=== PATIENT | female | born 1935 | race Caucasian/White ===

== ENCOUNTER → 2020-03-26 12:47 | Outpatient (BNVA) | payer MEDICARE, SELFPAY | PROVIDERS: PCP Internal Medicine; Visit Provider Urology | DX: N39.41 Urge incontinence (principal); R39.15 Urgency of urination | CPT/HCPCS: 64566 ==

== ENCOUNTER 2020-03-29 09:59 | Outpatient (REF) | payer MEDICARE, SELFPAY ==
[2020-03-29 11:59] LABS: Glucose Urine UA NEG (NEG); Leukocyte Esterase Urine 1+ (NEG); Urine Blood 3+ (NEG); Urine Ketones NEG (NEG); Urine Protein 2+ MG/DL (NEG-TRACE)
[2020-03-29 12:00] LABS: Color Urine RED
[2020-03-29 12:01] LABS: Appearance Urine CLOUDY
[2020-03-29 12:24] LABS: RBC Urine TNTC /HPF (0); Squamous Epithelial Cell Urine 1+ /LPF
== END 2020-03-29 10:00 | disposition home or self-care (01) ==
LOC: HO.LAB 09:59
PROVIDERS: PCP Internal Medicine; Visit Provider Internal Medicine
DX: R31.0 Gross hematuria (principal)
CPT/HCPCS: 81001; 81003; 87086

== ENCOUNTER 2020-04-06 13:41 | Emergency (ER) | payer MEDICARE, SELFPAY ==
[2020-04-06 13:47] VITALS: BP 163/77; PULSE 107; RESP 18; TEMP 36.7; O2SAT 98; BMI 32.1
[2020-04-06] MEDS: Lidocaine HCl 1 % MPF 5 ML VIAL SUBCUT (13:58)
--- NOTE | 2020-04-06 14:07 | XR_ITS ---
EXAMINATION: XR HAND, LEFT CLINICAL INFORMATION: Injury to distal aspect of the left ring finger COMPARISON: None TECHNIQUE: PA, lateral, and oblique views of the left hand. FINDINGS: There is a subtle linear lucency along the ulnar aspect of the tuft of the distal phalanx of the ring finger, only seen on the AP view, that may represent a nondisplaced fracture versus a nutrient foramen. There is soft tissue irregularity to the finger pad of the ring finger, that likely represents a laceration. No radiopaque foreign body is visualized. The remainder of the bones are intact. Joint spaces are preserved. There is diffuse osteopenia. IMPRESSION: Subtle linear lucency along the ulnar aspect of the tuft of the distal phalanx of the ring finger, only seen on the AP view, that may represent a nondisplaced fracture versus a nutrient foramen. Soft tissue laceration to the distal aspect of the ring finger. No radiopaque foreign body is visualized.
--- NOTE | 2020-04-06 14:11 | ED.WOUNDLAC ---
HPI - Wound/Laceration General Chief Complaint: Skin/Abscess/Foreign Body Stated Complaint: finger laceration Time Seen by Provider: 04/06/20 13:51 Source: patient Mode of arrival: ambulatory Limitations: no limitations History of Present Illness HPI narrative: 84-year-old female presenting to the ED with complaints of a laceration to her left hand ring finger at the distal aspect that occurred prior to arrival when the garage door closed shut quickly and cut her hand. She is not sure she is up-to-date on her tetanus vaccine. Denies any other injuries complaints or concerns at this time. Related Data Previous Rx's Medication Instructions Recorded cephalexin [Keflex] 500 mg PO Q6H 10 Days #40 cap 04/06/20 tramadol 50 mg PO Q8H PRN #14 tab NS 04/06/20 Allergies Allergy/AdvReac Type Severity Reaction Status Date / Time perfume Allergy Intermediate SNEEZES Verified 04/06/20 13:59 solifenacin [Vesicare] Allergy Unknown swollen Verified 07/03/19 00:00 lips Review of Systems Review of Systems: Constitutional : No Fever, No Chills, Cardiovascular : No Chest Pain, No SOB Respiratory : No Dyspnea Gastrointestinal : No abdominal pain Musculoskeletal : No Joint Swelling Skin : positive skin laceration, No Foreign bodies, No rash, No surrounding erythema Neuro : No Weakness, No Numbness/tingling Psych : No SI/HI/thoughts of self injury Yes all other systems are reviewed and are negative [facility] Past Medical History Medical History HTN (hypertension) Social History Social History Alcohol intake: never Smoked in Last 30 Days: No Use of substances other than those prescribed or required for medical reasons: No Advance Directives: No Advance Directives Information Provided: No Physical Exam Vital Signs: Vital Signs: Vital Signs Temp Pulse Resp BP Pulse Ox 04/06/20 13:47 98.0 F 107 H 18 163/77 H 98 Body Mass Index 32.1 vital signs have been reviewed as normal and appeared to be correct. Blood pressure normal. Heart rate normal. Respiration rate normal. Temperature normal. Oxygen saturation normal. Appearance: Alert. Oriented X3. No acute distress. Head: Normal external exam. Normocephalic. Atraumatic. No Bui signs noted. No raccoon eyes noted Eyes: PERRLA. EOMI. Conjunctiva and sclera normal. Eyelids normal. ENT: EAC normal. TM's Normal. Pharynx normal. Uvula midline. Moist mucous membranes. No trismus noted. No drooling noted. No muffled voice noted. Neck: Normal inspection. Neck supple. FROM. No adenopathy. Thyroid Normal. No meningeal signs. No neck mass noted. CVS: Normal heart rate and rhythm. Heart sound normal. No murmurs noted. Pulses normal throughout. Respiratory: No respiratory distress. Painless inspiration. Breath sounds normal. No wheezes/rales/rhonchi noted. Chest nontender. No accessory muscle usage noted or decreased air movement noted. Abdomen: Soft and nontender. Bowel sounds normal in all 4 quadrants. No distention noted. No organomegaly noted. No visible injury noted. Back: No CVA tenderness. Full range of motion noted. Skin: Skin warm and dry. Normal skin color. Normal skin turgor. No rashes/lesions noted. Laceration to left hand ring finger distal aspect on the palmar aspect there is noted to be a curved 2 cm subcuatneous laceration. Bleeding controlled no FB's noted. Nail bed and nail not involved. Extremities: TTP of left ring finger distal aspect. No lower extremity edema. Extremities exhibit normal range of motion. Extremities nontender. Neuro: Oriented X 3. No motor deficit. No sensory deficit. Reflexes normal. Course Course Course Narrative: patient is now status post laceration repair with 5 sutures placed. Patient tolerated procedure well. No complications. Tetanus was updated at this time. X-ray obtained and revealed a possible linear fracture on the ulnar aspect of the distal phalanx of the ring finger. Will DC home with antibiotics and referral to Orthopedics and instructions to return in 10 days for suture removal and to return if any new or worsening symptoms. Patient understands agrees with this plan. Procedures Laceration Laceration 1: Site: hand (ring finger distal aspect ) Side (If applicable): left Size (cm): 2 Description: linear and clean Depth: simple, single layer Local Anesthetic: lidocaine 1% Amount of anesthesia used (mL): 3 Pre-repair: wound explored, irrigated extensively and deep structures intact Skin layer closed with: nylon Size (cm): 4-0 Number of sutures: 5 Technique: simple, interrupted MDM - Wound/Laceration Medical Records Attestation: I reviewed the patient's medical records. Imaging Data xray of left ring finger: Attestation: I personally reviewed and interpreted this imaging study as follows: Radiologist's impression: IMPRESSION: Subtle linear lucency along the ulnar aspect of the tuft of the distal phalanx of the ring finger, only seen on the AP view, that may represent a nondisplaced fracture versus a nutrient foramen. Soft tissue laceration to the distal aspect of the ring finger. No radiopaque foreign body is visualized. Discharge Plan Discharge Clinical Impression: Laceration Finger fracture, left Qualifiers: Encounter type: initial encounter Finger: ring finger Fracture type: closed Phalanx: distal Fracture alignment: nondisplaced Qualified Code(s): S62.665A - Nondisplaced fracture of distal phalanx of left ring finger, initial encounter for closed fracture Patient Disposition: Home, Self-Care Instructions: Laceration (ED) Prescriptions: New tramadol 50 mg tablet 50 mg PO Q8H PRN (Reason: pain) Qty: 14 RF: 0 cephalexin [Keflex] 500 mg capsule 500 mg PO Q6H 10 Days Qty: 40 RF: 0 Referrals: Lenin Conner MD [Physician] - 04/15/20 (call to follow up within 1-2 weeks ) Ariadna Villarreal PA [Emergency Midlevel Provider] - 04/16/20 ( FOR SUTURE REMOVAL.) Print Language: Dutch
--- NOTE | 2020-04-06 14:50 | PC.NURSE ---
PCT DRESSING PT WOUND WITH SPLINT PER PA.
== END 2020-04-06 15:03 | disposition home or self-care (01) ==
PROVIDERS: Emergency Provider Emergency Medicine; PCP Internal Medicine
DX: S61.214A Laceration without foreign body of right ring finger without damage to nail, initial encounter (principal); S62.664A Nondisplaced fracture of distal phalanx of right ring finger, initial encounter for closed fracture; W23.1XXA Caught, crushed, jammed, or pinched between stationary objects, initial encounter; Y93.89 Activity, other specified; Y92.015 Private garage of single-family (private) house as the place of occurrence of the external cause; Y99.9 Unspecified external cause status
CPT/HCPCS: 12001; 73130; 90471; 90715; 99284

== ENCOUNTER 2020-04-16 09:12 | Emergency (ER) | payer MEDICARE, SELFPAY ==
[2020-04-16 09:41] VITALS: BP 140/62; PULSE 78; RESP 17; TEMP 36.9; O2SAT 99; BMI 32.1
--- NOTE | 2020-04-16 10:09 | ED.WOUNDLAC ---
HPI - Wound/Laceration General Chief Complaint: Wound/Laceration Stated Complaint: suture removal Time Seen by Provider: 04/16/20 10:02 Source: patient Mode of arrival: wheelchair History of Present Illness HPI narrative: 84-year-old female presenting to ED for suture removal from laceration to left ring finger s/p 5 sutures placed on 04/06 after back door slamming finger. admits to taking previously prescribed antibiotic. Denies follow-up with Orthopedics yet, or desire to. denies complaints at present, denies pain, drainage, fever, chills Related Data Previous Rx's Medication Instructions Recorded cephalexin [Keflex] 500 mg PO Q6H 10 Days #40 cap 04/06/20 tramadol 50 mg PO Q8H PRN #14 tab NS 04/06/20 Allergies Allergy/AdvReac Type Severity Reaction Status Date / Time perfume Allergy Intermediate SNEEZES Verified 04/06/20 13:59 solifenacin [Vesicare] Allergy Unknown swollen Verified 07/03/19 00:00 lips Review of Systems Review of Systems: Constitutional: No Weight loss, No Fever, No Chills Musculoskeletal: No joint pain, No Myalgias, No Joint Swelling Skin: No Skin Lesions, No rash Neuro: No Weakness, No Numbness, No Paresthesias Yes all other systems are reviewed and are negative PMFSH Past Medical History Source: nursing notes reviewed Medical History HTN (hypertension) Social History Social History Alcohol intake: never Advance Directives: No Advance Directives Information Provided: No Physical Exam Vital Signs: Vital Signs: Vital Signs Temp Pulse Resp BP Pulse Ox 04/16/20 09:41 98.4 F 78 17 140/62 H 99 Body Mass Index 32.1 Const: General: cooperative and healthy appearing Orientation/consciousness: patient oriented x3 Limitations: no limitations HENMT: Head: Yes normal to inspection Ears: hearing grossly normal bilaterally General nose exam: Normal external nose present Face and sinus: Yes normal facial exam Eyes: General: appearance normal, both eyes and all related structures EOM: EOMs intact bilaterally Neck: Neck: Yes normal visual inspection Resp: Effort & Inspection: normal respiratory effort Cardio: Peripheral pulses: radial pulses present Skin: Other: 5 sutures intact to left distal ring finger. No surrounding erythema. No fluctuance /induration. FROM/NV intact Neuro: General: patient oriented x3 Gait exam (Neuro): Normal gait present Extrem: General: Yes normal to inspection Discharge Plan Discharge Clinical Impression: Encounter for removal of sutures Patient Disposition: Home, Self-Care Instructions: Stitches Removal (ED) Additional Instructions: your stitches were taken out today in the ED Apply bacitracin or Neosporin at home You may also apply anti scar cream likely derma Keep area clean, left area get to it for healing Avoid excessive water / movement/ rubbing You should still follow-up with the orthopedic surgeon Prescriptions: No Action tramadol 50 mg tablet 50 mg PO Q8H PRN (Reason: pain) Qty: 14 RF: 0 cephalexin [Keflex] 500 mg capsule 500 mg PO Q6H 10 Days Qty: 40 RF: 0
== END 2020-04-16 10:20 | disposition home or self-care (01) ==
PROVIDERS: Emergency Provider Emergency Medicine; PCP Internal Medicine
DX: Z48.02 Encounter for removal of sutures (principal); M79.642 Pain in left hand
CPT/HCPCS: 99283

== ENCOUNTER → 2020-07-03 10:06 | Outpatient (BNVA) | payer MEDICARE, SELFPAY | PROVIDERS: PCP Internal Medicine; Visit Provider Internal Medicine Cardiovascular Disease | DX: I48.91 Unspecified atrial fibrillation (principal) | CPT/HCPCS: 93005; 99212 ==

== ENCOUNTER 2020-10-27 11:21 | Inpatient (IN) | payer MEDICARE, SELFPAY ==
[2020-10-27] VITALS (9 sets, daily range): BP systolic 150–181; BP diastolic 82–112; PULSE 60–133; RESP 18–19; TEMP 36.4–37.4; O2SAT 93–96; BMI 31.2
--- NOTE | ~2020-10-27 | XR_ITS ---
EXAMINATION: XR CHEST CLINICAL INFORMATION: Confirm NG tube placement. COMPARISON: None TECHNIQUE: Frontal view of the chest was obtained. FINDINGS: There is a new nasogastric tube with its tip in the stomach. There is moderate elevation of right hemidiaphragm. The lungs are otherwise well-expanded and clear. The heart size and pulmonary vascularity is normal. There are surgical nicci in the left axilla. XR/XR chest 1V IMPRESSION: Tip of nasogastric tube in the stomach. Elevated right hemidiaphragm. The lungs are clear.
--- NOTE | ~2020-10-27 | CT_ITS ---
EXAMINATION: CT ABDOMEN AND PELVIS WITH CONTRAST CLINICAL INFORMATION: Vomiting, pain, constipation. Rule out small bowel obstruction. COMPARISON: CT abdomen 01/04/2019. TECHNIQUE: Multidetector volumetric images were obtained from the superior aspect of the liver through the pubic symphysis following administration 85 mL of Omnipaque 350 intravenous contrast. Sagittal and coronal reformatted images were obtained on the technologist's workstation. Oral contrast: No. This CT examination was performed using dose optimization techniques as appropriate, variously including the following: *Automated exposure control *Adjustment of mA and/or kV according to patient size (this includes techniques or standardized protocols for targeted exams where dose is matched to indication/reason for exam; i.e. extremities or head). *Use of iterative reconstruction technique. DLP: 498 mGy-cm FINDINGS: LUNG BASES: Mild right basilar atelectasis. Small right pleural effusion. Normal heart size. Coronary artery calcification. No pericardial effusion. LIVER, GALLBLADDER, AND BILIARY TREE: No focal liver lesion seen. Redemonstrated is prominent intrahepatic and extrahepatic biliary duct dilatation. CBD measures approximately 1.7 cm, tapering distally. No definite filling defects identified within the CBD. This appears similar as compared to previous. Gallbladder is absent. PANCREAS: Prior CT scan demonstrated multiple cystic lesions in the pancreas. These lesions are difficult to visualize and correctly compare with the pancreatic mass protocol CT of 01/04/2019. There is a lesion in the uncinate process of the pancreas, suboptimally visualized measuring approximately 1.4 cm. Image 6:259. Lesion in the tail of the pancreas measuring 1.5 cm, previously measuring 1.4 cm, image 6:224. The additional lesion described on the prior CT scan are not well visualized on today's study. Pancreatic duct does not appear dilated. SPLEEN: Unremarkable. ADRENAL GLANDS: Unremarkable. KIDNEYS AND URETERS: 5.4 cm right renal cyst. Smaller hypodense lesions in bilateral kidneys, too small to characterize. No hydronephrosis. BLADDER: Unremarkable. GASTROINTESTINAL TRACT: There are dilated small bowel loops containing air and fluid present, measuring up to proximately 3.4 cm. The findings are compatible with small bowel obstruction. The area of transition appears to be in the lower midabdomen, image 4:33. The large colon is nondistended. Scattered colonic mid diverticuli. ABDOMINAL WALL: No significant abdominal wall hernia seen. LYMPH NODES: Prominent periportal and peripancreatic lymph nodes, appearing slightly less prominent as compared to previous. VASCULAR: No aneurysmal aortic dilatation seen. Atherosclerotic vascular calcification. PELVIC VISCERA: Anteverted uterus which was bulky. Multiple ill-defined low-attenuation foci within the uterus, indeterminate by CT. No adnexal masses identified. OSSEOUS STRUCTURES: Multilevel degenerative changes in the spine. CT/CT abdomen pelvis w con IMPRESSION: 1. Abnormal findings with dilated small bowel loops indicate a small bowel obstruction. The transition point appears to be in the mid lower abdomen. 2. Prominent intrahepatic and extrahepatic biliary dilatation, which appears similar as compared to previous. There are multiple cystic lesions present in the pancreas, suboptimally visualized. These are better visualized on the prior CT pancreatic mass protocol of 01/04/2019. This includes cystic lesions in the pancreatic head, tail, incompletely evaluated. Side branch intraductal papillary mucinous neoplasm remains in the differential. Recommend further evaluation with MRI pancreas protocol, or CT abdomen pancreatic protocol for further evaluation. 3. Right renal 5.4 cm cyst. 4. Bulky anteverted uterus containing multiple low-attenuation foci, suboptimally evaluated. Recommend further evaluation with follow-up pelvic ultrasound.
--- NOTE | ~2020-10-27 | XR_ITS ---
EXAMINATION: XR ABDOMEN KUB CLINICAL INDICATION: Resolved small bowel obstruction. Evaluate for ileus. COMPARISON: Previous CT of the abdomen and pelvis 10/27/2020 TECHNIQUE: AP view of the abdomen. FINDINGS: There is interval decrease in small bowel dilatation compared to 10/27/2020 exam. There is no evidence of free air. No calcifications are seen. There are degenerative changes of the lower lumbar spine. XR/XR KUB IMPRESSION: Interval decrease in small bowel dilatation compared to 10/27/2020 CT scan.
--- NOTE | 2020-10-27 12:12 | ECG_ITS ---
Test Reason : UPPER ABD PAIN Blood Pressure : / mmHG Vent. Rate : 102 BPM Atrial Rate : 441 BPM P-R Int : 000 ms QRS Dur : 074 ms QT Int : 356 ms P-R-T Axes : 000 -15 000 degrees QTc Int : 463 ms Atrial fibrillation with rapid ventricular response Abnormal ECG When compared with ECG of 15-NOV-2012 07:10, Atrial fibrillation has replaced Sinus rhythm Referred By: Hellen Rizo Electronically Signed By:DANE SUMNER
--- NOTE | 2020-10-27 12:13 | ED.ABDPAIN ---
HPI - Abdominal Pain General Chief Complaint: Abdominal Pain Stated Complaint: Abd Pain x3 days Time Seen by Provider: 10/27/20 12:07 Source: patient and EMS Mode of arrival: EMS Limitations: no limitations History of Present Illness HPI narrative: 84-year-old female with a past medical history of AFib on Eliquis, hypertension here with complaints of generalized abdominal pain for 3 days. The patient tells me that she has had associated vomiting with this. She has improvement in pain after she vomits. She has also had some constipation and her last bowel movement was 3 days ago. No urinary symptoms, fevers or chills, diarrhea. Decreased p.o. intake. Patient has no appetite. MD elicited complaint: abdominal pain Related Data Home Medications Medication Instructions Recorded Confirmed apixaban [Eliquis] 2.5 mg PO DAILY 10/27/20 10/27/20 diltiazem HCl 120 mg PO DAILY 10/27/20 10/27/20 irbesartan 1 tab PO DAILY 10/27/20 10/27/20 tramadol 1 tab PO BEDTIME PRN 10/27/20 10/27/20 Allergies Allergy/AdvReac Type Severity Reaction Status Date / Time perfume Allergy Intermediate SNEEZES Verified 04/06/20 13:59 solifenacin [Vesicare] Allergy Unknown swollen Verified 07/03/19 00:00 lips Review of Systems Review of Systems Yes all other systems are reviewed and are negative Constitutional: Reports no additional constitutional complaints, Denies body ache(s), Denies chills, Denies fever(s), Denies headache(s), Reports poor appetite and Denies weakness Eyes: Reports no additional eye complaints and Denies change in vision Reports system reviewed and no additional complaints, except as documented, Denies dizziness, Denies headache(s), Denies nasal congestion, Denies nasal discharge and Denies neck pain Cardiovascular: Reports no additional cardiovascular complaints, Denies chest pain, Denies leg edema and Denies dyspnea Respiratory: Reports no additional respiratory complaints, Denies cough and Denies dyspnea Gastrointestinal: Reports no additional gastrointestinal complaints, Reports abdominal pain, Reports constipation, Denies diarrhea, Reports nausea and Reports vomiting Genitourinary: Reports no additional female genitourinary complaints and Denies urinary incontinence Musculoskeletal: Reports no additional musculoskeletal complaints, Denies back pain, Denies arthralgias, Denies joint swelling, Denies neck pain, Denies numbness and Denies tingling Skin/Breast: Reports system reviewed and no additional complaints, except as docu and Denies rash Reports system reviewed and no additional complaints, except as documented, Denies Abnormal speech present, Denies dizziness, Denies headache(s), Denies numbness, Denies tingling and Denies weakness Physical Exam Vital Signs: Vital Signs: Last Vital Signs Temp 97.6 F 10/27/20 19:20 Pulse 106 H 10/27/20 19:20 Resp 18 10/27/20 19:20 BP 181/103 H 10/27/20 19:20 Pulse Ox 96 10/27/20 19:20 Body Mass Index 31.2 Const: General: cooperative, healthy appearing, comfortable and no acute distress Orientation/consciousness: patient oriented x3 Limitations: no limitations HENMT: Head: Yes normal to inspection Ears: hearing grossly normal bilaterally General nose exam: Normal external nose present Face and sinus: Yes normal facial exam Mouth: Normal oral and palatal mucosa present Throat: Yes posterior oropharynx normal Eyes: General: appearance normal, both eyes and all related structures Pupils: Equal, round and reactive pupils present Neck: Neck: Yes normal visual inspection Chest: Chest palpation & inspection: normal inspection of the chest Resp: Effort & Inspection: normal respiratory effort Auscultation: clear to auscultation bilaterally Cardio: Rate: regular rate Rhythm: regular rhythm Peripheral pulses: Peripheral pulses 2+ throughout GI: Inspection: Yes normal to inspection Palpation (GI): Soft to palpation and Tenderness to palpation present (GI) (Mild diffuse tenderness although there is some more focal tenderness LUQ) Auscultation: normal bowel sounds : Other: No bleeding noted from vaginal External Female Exam: normal external appearance Back/Spine/Pelvis: Thoracic/Lumbar Spine: thoracic and lumbar spine normal to inspection Skin: General skin exam: no rashes or lesions noted Neuro: General: patient oriented x3, no focal motor deficits and normal sensation to monofilament Cranial nerves: Yes Equal, round and reactive pupils present Cognition (Neuro): normal cognition Speech: No Abnormal speech present Gait exam (Neuro): Normal gait present Motor exam (neuro): 5/5 motor strength present throughout Extrem: General: Yes normal to inspection, Yes no pedal edema and Yes no calf tenderness Course Course Course Narrative: 84-year-old female with a past medical history of AFib and hypertension here with complaints of diffuse abdominal pain with associated vomiting and constipation. On exam has diffuse tenderness but there is some more focal tenderness over the left-sided abdomen. Will need labs, UA, EKG d/t age, Ct A/P. 1305-labs show leukocytosis 13.6, hypokalemia 3.1. Will attempt p.o. potassium. Give IV if unable to tolerate. Normal saline bolus. 1705- CT A/P IMPRESSION: 1. Abnormal findings with dilated small bowel loops indicate a small bowel obstruction. The transition point appears to be in the mid lower abdomen. 2. Prominent intrahepatic and extrahepatic biliary dilatation, which appears similar as compared to previous. There are multiple cystic lesions present in the pancreas, suboptimally visualized. These are better visualized on the prior CT pancreatic mass protocol of 01/04/2019. This includes cystic lesions in the pancreatic head, tail, incompletely evaluated. Side branch intraductal papillary mucinous neoplasm remains in the differential. Recommend further evaluation with MRI pancreas protocol, or CT abdomen pancreatic protocol for further evaluation. 3. Right renal 5.4 cm cyst. 4. Bulky anteverted uterus containing multiple low-attenuation foci, suboptimally evaluated. Recommend further evaluation with follow-up pelvic ultrasound. Discussed patient with Dr. magallon is from surgery. Recommended admission with NG tube and bowel rest. Patient had episode of AFib with RVR here with a rate of 150. She did require a dose of 10 mg of IV Cardizem and her rate is now 108 in AFib. Requested medicine admit patient. Spoke to Dr. Dangelo who will admit the patient. Of note, the patient and the in the room seemed quite confused on which medications she takes and when she takes them. They were last filled in June however the patient does insist that she does take them every day. May need case management and social work involvement during admission. Patient was also noted to have some pink urine with small clots. She tells me she has a history of blood in her urine and she is followed by urologist and this is been a chronic problem for her. The UA does not appear infected and she has no symptoms of a UTI so we will not treat this. 1845-Patient HR now afib rate 130-140's. Will place on cardizem gtt. Nursing aware. MDM - Abdominal Pain MDM Narrative Medical decision making narrative: Pancreatitis, small-bowel obstruction, constipation, gastritis, GERD Medical Records Attestation: I reviewed the patient's medical records. Lab Data Attestation: I reviewed the patient's lab results. Result diagrams: 10/27/20 12:34 10/27/20 12:34 Labs: Lab Results 10/27/20 10/27/20 10/27/20 Range/Units 12:34 12:34 12:34 WBC 13.6 H (4.8-10.8) X10*3/uL RBC 4.57 (4.20-5.50) X10*6/uL Hgb 14.1 (12.0-16.0) g/dl Hct 41.6 (37-47) % MCV 91.0 (80-98) fL MCH 30.9 (27.0-33.0) pg MCHC 33.9 (31.0-35.0) g/dl RDW 14.8 (11.0-16.0) % Plt Count 248 (160-400) X10*3/uL MPV 10.3 (9.4-12.3) fL Immature Gran % (Auto) 0.4 (0.0-0.4) % Neut % (Auto) 84.7 H (45-73) % Lymph % (Auto) 6.7 L (20-40) % [place] % (Auto) 8.1 (2-11) % Eos % (Auto) 0.0 (0-4) % Baso % (Auto) 0.1 (0-2) % Lymph # (Auto) 0.9 L (1.2-4.9) X10*3/uL [place] # (Auto) 1.1 (0.1-1.2) X10*3/uL Eos # (Auto) 0.0 (0.0-0.4) X10*3/uL Baso # (Auto) 0.0 (0.0-0.2) X10*3/uL Abs Immat Gran (auto) 0.05 H (0.00-0.03) X10*3/uL Absolute Neuts (auto) 11.5 H (2.0-8.3) X10*3/uL Absolute Nucleated RBC 0.000 (0.0-0.012) X10*3/uL Nucleated RBC % (auto) 0.0 (0.0-0.2) /100WBC PT 11.9 (10.8-13.0) SEC INR 1.0 (0.9-1.1) Sodium 138 (135-145) mmol/L Potassium 3.1 L (3.3-5.1) mmol/L Chloride 98 (96-108) mmol/L Carbon Dioxide 25 (22-29) mmol/L Anion Gap 18 (12-20) BUN 19 H (9-16) mg/dL Creatinine 0.98 (0.5-1.4) mg/dL Estim Creat Clear Calc 38.8 Estimated GFR 54 Random Glucose 134 H (60-115) mg/dL Calcium 8.9 (8.4-10.2) mg/dL Magnesium 1.8 (1.6-2.6) mg/dL Total Bilirubin 0.9 (0.0-1.0) mg/dL Direct Bilirubin 0.3 (0.0-0.5) mg/dL AST 22 (5-31) U/L ALT 15 (0-31) U/L Alkaline Phosphatase 68 (39-117) U/L Total Protein 6.7 (6.5-8.0) g/dL Albumin 4.1 (3.5-5.0) g/dL Lipase 18 (8-78) U/L Urine Color Urine Appearance Urine pH (5.0-8.0) Ur Specific [place] (1.005-1.025) Urine Protein (NEG-TRACE) MG/DL Urine Glucose (UA) (NEG) MG/DL Urine Ketones (NEG) MG/DL Urine Blood (NEG) Urine Nitrite (NEG) Ur Leukocyte Esterase (NEG) Urine RBC (0) /HPF Urine WBC (0-4) /HPF Ur Squamous Epith Cells /LPF Urine Bacteria /LPF COVID-19 ([facility]) (Negative) COVID-19 Clin Com 10/27/20 10/27/20 Range/Units 16:50 17:15 WBC (4.8-10.8) X10*3/uL RBC (4.20-5.50) X10*6/uL Hgb (12.0-16.0) g/dl Hct (37-47) % MCV (80-98) fL MCH (27.0-33.0) pg MCHC (31.0-35.0) g/dl RDW (11.0-16.0) % Plt Count (160-400) X10*3/uL MPV (9.4-12.3) fL Immature Gran % (Auto) (0.0-0.4) % Neut % (Auto) (45-73) % Lymph % (Auto) (20-40) % [place] % (Auto) (2-11) % Eos % (Auto) (0-4) % Baso % (Auto) (0-2) % Lymph # (Auto) (1.2-4.9) X10*3/uL [place] # (Auto) (0.1-1.2) X10*3/uL Eos # (Auto) (0.0-0.4) X10*3/uL Baso # (Auto) (0.0-0.2) X10*3/uL Abs Immat Gran (auto) (0.00-0.03) X10*3/uL Absolute Neuts (auto) (2.0-8.3) X10*3/uL Absolute Nucleated RBC (0.0-0.012) X10*3/uL Nucleated RBC % (auto) (0.0-0.2) /100WBC PT (10.8-13.0) SEC INR (0.9-1.1) Sodium (135-145) mmol/L Potassium (3.3-5.1) mmol/L Chloride (96-108) mmol/L Carbon Dioxide (22-29) mmol/L Anion Gap (12-20) BUN (9-16) mg/dL Creatinine (0.5-1.4) mg/dL Estim Creat Clear Calc Estimated GFR Random Glucose (60-115) mg/dL Calcium (8.4-10.2) mg/dL Magnesium (1.6-2.6) mg/dL Total Bilirubin (0.0-1.0) mg/dL Direct Bilirubin (0.0-0.5) mg/dL AST (5-31) U/L ALT (0-31) U/L Alkaline Phosphatase (39-117) U/L Total Protein (6.5-8.0) g/dL Albumin (3.5-5.0) g/dL Lipase (8-78) U/L Urine Color PINK Urine Appearance HAZY Urine pH 6.5 (5.0-8.0) Ur Specific [place] 1.010 (1.005-1.025) Urine Protein 1+ H (NEG-TRACE) MG/DL Urine Glucose (UA) NEG (NEG) MG/DL Urine Ketones 5 (NEG) MG/DL Urine Blood 3+ H (NEG) Urine Nitrite NEG (NEG) Ur Leukocyte Esterase NEG (NEG) Urine RBC 76-150 H (0) /HPF Urine WBC 0 (0-4) /HPF Ur Squamous Epith Cells 2+ /LPF Urine Bacteria 4+ /LPF COVID-19 ([facility]) Negative (Negative) COVID-19 Clin Com See Note Imaging Data CT scan - abdomen: Attestation: I personally reviewed and interpreted this imaging study as follows: Radiologist's impression: IMPRESSION: 1. Abnormal findings with dilated small bowel loops indicate a small bowel obstruction. The transition point appears to be in the mid lower abdomen. 2. Prominent intrahepatic and extrahepatic biliary dilatation, which appears similar as compared to previous. There are multiple cystic lesions present in the pancreas, suboptimally visualized. These are better visualized on the prior CT pancreatic mass protocol of 01/04/2019. This includes cystic lesions in the pancreatic head, tail, incompletely evaluated. Side branch intraductal papillary mucinous neoplasm remains in the differential. Recommend further evaluation with MRI pancreas protocol, or CT abdomen pancreatic protocol for further evaluation. 3. Right renal 5.4 cm cyst. 4. Bulky anteverted uterus containing multiple low-attenuation foci, suboptimally evaluated. Recommend further evaluation with follow-up pelvic ultrasound. Chest x-ray: Attestation: I personally reviewed and interpreted this imaging study as follows: Radiologist's impression: EXAMINATION: XR CHEST CLINICAL INFORMATION: Confirm NG tube placement. COMPARISON: None TECHNIQUE: Frontal view of the chest was obtained. FINDINGS: There is a new nasogastric tube with its tip in the stomach. There is moderate elevation of right hemidiaphragm. The lungs are otherwise well-expanded and clear. The heart size and pulmonary vascularity is normal. There are surgical nicci in the left axilla. XR/XR chest 1V IMPRESSION: Tip of nasogastric tube in the stomach. Elevated right hemidiaphragm. The lungs are clear. ECG Data Attestation: I personally reviewed and interpreted this ECG as follows: ECG interpretation date: 10/27/20 ECG interpretation time: 12:24 Interpretation: AFib with a rate of 102, normal QRS, normal QTC Discharge Plan Discharge Clinical Impression: Small bowel obstruction, Afib Patient Disposition: Admitted As Inpatient [facility] Past Medical History Attestation statement: The following information was validated with the patient. Source: old records reviewed and nursing notes reviewed Medical History (Updated 10/27/20 @ 18:11 by Hellen Rizo NP) HTN (hypertension) Surgical History (Updated 10/27/20 @ 12:39 by Hellen Rizo NP) History of appendectomy History of carpal tunnel surgery History of cholecystectomy Family History Family History Father No problems noted. Mother No problems noted. Social History Social History Alcohol intake: never Smoking Status: Former smoker Smoked in Last 30 Days: No Use of substances other than those prescribed or required for medical reasons: No Advance Directives: No Advance Directives Information Provided: No
--- NOTE | 2020-10-27 12:33 | PC.NURSE ---
EKG obtained and labs bring drawn by PCT at this time. Pt is resting quietly with family member at bedside.
[2020-10-27 12:38] LABS: MANUAL DIFF FLAG NO
[2020-10-27 12:39] LABS: Basophils Percent Auto 0.1 % (0-2); Hematocrit 41.6 % (37-47); Hemoglobin 14.1 g/dl (12.0-16.0); Imm Gran Abs Auto 0.05 X10*3/uL (0.00-0.03); Imm Gran Pct Auto 0.4 % (0.0-0.4); Lymphocytes Absolute Auto 0.9 X10*3/uL (1.2-4.9); Lymphocytes Percent Auto 6.7 % (20-40); Mean Corpuscular HGB Conc 33.9 g/dl (31.0-35.0); Mean Corpuscular Hemoglobin 30.9 pg (27.0-33.0); Mean Platelet Volume 10.3 fL (9.4-12.3); Monocytes Absolute Auto 1.1 X10*3/uL (0.1-1.2); Monocytes Percent Auto 8.1 % (2-11); Neutrophils Absolute Auto 11.5 X10*3/uL (2.0-8.3); Neutrophils Percent Auto 84.7 % (45-73); Platelet Count 248 X10*3/uL (160-400); Red Blood Count 4.57 X10*6/uL (4.20-5.50); Red Cell Distribution Width 14.8 % (11.0-16.0); White Blood Count 13.6 X10*3/uL (4.8-10.8)
[2020-10-27 12:49] LABS: Prothrombin Time 11.9 SEC (10.8-13.0)
[2020-10-27 13:03] LABS: Alanine Aminotransferase 15 U/L (0-31); Albumin Level 4.1 g/dL (3.5-5.0); Alkaline Phosphatase 68 U/L (39-117); Anion Gap 18 (12-20); Aspartate Amino Transferase 22 U/L (5-31); Bilirubin Direct 0.3 mg/dL (0.0-0.5); Bilirubin Total 0.9 mg/dL (0.0-1.0); Blood Urea Nitrogen 19 mg/dL (9-16); Calcium 8.9 mg/dL (8.4-10.2); Carbon Dioxide 25 mmol/L (22-29); Chloride 98 mmol/L (96-108); Creatinine Clr Calc Pharmacy 38.8; Estimated Glomerular Filt Rate 54; Glucose Random 134 mg/dL (60-115); Lipase 18 U/L (8-78); Magnesium 1.8 mg/dL (1.6-2.6); Potassium 3.1 mmol/L (3.3-5.1); Sodium 138 mmol/L (135-145); Total Protein 6.7 g/dL (6.5-8.0)
[2020-10-27] MEDS: Potassium Chloride ER 20 MEQ TAB.ER.PRT 40 MEQ PO (14:34)
[2020-10-27] MEDS: 0.9 % Sodium Chloride 1,000 ML 999 ML IV (14:35)
--- NOTE | 2020-10-27 15:30 | PC.NURSE ---
pt to cat scan now.
[2020-10-27] MEDS: iohexoL 350 MG/ML 100 ML INFUS..BTL IV (15:59)
--- NOTE | 2020-10-27 16:55 | PC.NURSE ---
UA collected. jeanine blood noted on pantliner and in urine. Pt unsure of how long this has been going on. Pt is poor historian.
[2020-10-27] MEDS: dilTIAZem HCL 50 MG/10 ML VIAL 10 MG IVPUSH (17:13)
[2020-10-27 17:15] LABS: Glucose Urine UA NEG (NEG); Leukocyte Esterase Urine NEG (NEG); Nitrite Urine NEG (NEG); PH 6.5 (5.0-8.0); Urine Blood 3+ (NEG); Urine Ketones 5 MG/DL (NEG); Urine Protein 1+ MG/DL (NEG-TRACE)
[2020-10-27 17:17] LABS: Appearance Urine HAZY; Color Urine PINK
[2020-10-27 17:40] LABS: COVID-19 Test Negative (Negative); IDNOW Serial# 9DD0AD1C
--- NOTE | 2020-10-27 17:40 | PC.NURSE ---
pt and at bedside are poor historians. This abstract writer placed multiple calls to various [facility] pharmacies, and [facility] to obtain med rec. Unsucessful. Last meds were filled in Jun 2020- for a 30 day supply. provider aware. montioring at this time.
[2020-10-27 17:49] LABS: Bacteria Urine 4+ /LPF; Squamous Epithelial Cell Urine 2+ /LPF; WBC Urine 0 /HPF (0-4)
--- NOTE | 2020-10-27 17:58 | PC.NURSE ---
per hospitalist team, this food writer is to fill out based on last claimed. Confirmed with MLP
[2020-10-27] MEDS: dilTIAZem HCL 125 MG in 0.9 % Sodium Chloride 100 ML 10 MG IVCONT (19:06)
--- NOTE | 2020-10-27 20:21 | P.HPHOSP_ITS ---
History of Present Illness Date of Service: 10/27/20 Chief Complaint: Abdominal pain This is an 84-year-old female with possible dementia, HTN, AFib on Eliquis who presents to the hospital with complaints of abdominal pain as well as vomiting. Patient is a very poor historian but answers questions somewhat appropriately. When asked about her last bowel movement she reported that it was 3 days ago, the abdominal pain is diffuse, nonradiating, 9/10, associated with vomiting but reports that improved. She reports that she had some blood in her urine. Denies any headache, change in vision, no chest pain, no palpitations, no diarrhea, constipated for 3 days with no bowel movements, has no dysuria frequency urgency, and no lower extremity edema. Vitals on arrival significant for temp of 98.9?, heart rate of 119, respiratory rate of 18, blood pressure of 152/85, satting 96% on room air Lab significant for WBC count of 13.6, hemoglobin of 14, potassium of 3.1, BUN of 19, creatinine of 0.98, UA that is positive for RBC and blood Patient will be admitted under our service for AFib with RVR as well as SBO with consult for surgery Review of Systems Review of Systems: Yes all other systems are reviewed and are negative [facility] Medical History (Updated 10/28/20 @ 06:10 by Leanna Howard MD) Afib HTN (hypertension) Family History Father No problems noted. Mother No problems noted. Surgical History History of appendectomy History of carpal tunnel surgery History of cholecystectomy Social History Household Members: Spouse Housing: House Do you presently have visiting nurse or other home services: No Alcohol intake: never Smoking Status: Former smoker Smoked in Last 30 Days: No Use of substances other than those prescribed or required for medical reasons: No Currently Displaying Signs/Symptoms of Drug Intoxication Withdrawal: No Have you been hit, kicked, punched, or otherwise hurt by someone within the past year? If so, by whom?: No Do you feel safe in your current relationship?: No Is there a partner from a previous relationship who is making you feel unsafe now?: No Are you made to feel afraid or neglected: No Advance Directives: No Advance Directives Information Provided: No Do you have thoughts of harming others: None Do you have a plan to hurt others: No Plan Recently lost weight without trying: No Patient : No : No Poor oral hygiene: No Meds Allergies Allergy/AdvReac Type Severity Reaction Status Date / Time perfume Allergy Intermediate SNEEZES Verified 04/06/20 13:59 solifenacin [Vesicare] Allergy Unknown swollen Verified 07/03/19 00:00 lips Active Medications: Current Medications Generic Name Dose Route Start Last Admin Trade Name Freq PRN Reason Stop Dose Admin Acetaminophen 650 mg 10/27/20 19:55 Acetaminophen 325 Mg Tablet NG-TUBE Q6H PRN Pain, Mild (Pain Scale 1-3) Diltiazem HCl 120 mg 10/28/20 09:00 Diltiazem Hcl Cd 120 Mg Cap.Er.Deg PO DAILY [facility] Protocol Diltiazem HCl 125 mg/ Sodium 125 mls @ 0 mls/hr 10/27/20 18:45 10/27/20 19:06 Chloride IVCONT 10 mg/hr .Q0M MOODY 10 mls/hr Administration Protocol Per Protocol Morphine Sulfate 4 mg 10/27/20 19:55 Morphine Sulfate 4 Mg/Ml Cartridge IVPUSH Q4H PRN Pain, Severe (Pain Scale 7-10) Ondansetron HCl 4 mg 10/27/20 19:55 Ondansetron Hcl 4 Mg/2 Ml Vial IVPUSH Q8H PRN Nausea and Vomiting Sodium Chloride 3 ml 10/28/20 00:00 0.9 % Sodium Chloride Flush 3 Ml Syringe IVFLUSH QSHIFT [facility] Tramadol HCl 50 mg 10/27/20 19:55 Tramadol Hcl 50 Mg Tablet PO BEDTIME PRN Pain Valsartan 40 mg 10/28/20 09:00 Valsartan 40 Mg Tablet PO DAILY [facility] Home Medications Medication Instructions Recorded Confirmed Last Taken Type apixaban [Eliquis] 2.5 mg PO DAILY 10/27/20 10/27/20 Unknown History diltiazem HCl 120 mg PO DAILY 10/27/20 10/27/20 Unknown History irbesartan 1 tab PO DAILY 10/27/20 10/27/20 Unknown History tramadol 1 tab PO BEDTIME PRN 10/27/20 10/27/20 Unknown History Physical Exam Vital Signs and Narrative: Vital Signs: Last Vital Signs Temp 97.6 F 10/27/20 19:20 Pulse 106 H 10/27/20 19:20 Resp 18 10/27/20 19:20 BP 181/103 H 10/27/20 19:20 Pulse Ox 96 10/27/20 19:20 Body Mass Index 31.2 Const: Other: oriented to self not to place or time General: cooperative and no acute distress Eyes: General: appearance normal, both eyes and all related structures Resp: Effort & Inspection: normal respiratory effort and able to speak in complete sentences Cardio: Rate: regular rate Rhythm: regular rhythm GI: Other: Diffuse tenderness, no guarding or rebound, hyperactive bowel sounds NG tube in place Skin: General skin exam: no rashes or lesions noted Neuro: Cognition (Neuro): normal cognition Extrem: General: Yes normal to inspection and Yes no pedal edema Results Labs CBC and Chem 7: 10/28/20 04:17 10/28/20 04:17 Labs: Laboratory Results - last 24 hr 10/27/20 10/27/20 10/27/20 12:34 12:34 12:34 MCV 91.0 MCH 30.9 MCHC 33.9 RDW 14.8 Plt Count 248 MPV 10.3 Immature Gran % (Auto) 0.4 Neut % (Auto) 84.7 H Lymph % (Auto) 6.7 L [place] % (Auto) 8.1 Eos % (Auto) 0.0 Baso % (Auto) 0.1 Lymph # (Auto) 0.9 L [place] # (Auto) 1.1 Eos # (Auto) 0.0 Baso # (Auto) 0.0 Abs Immat Gran (auto) 0.05 H Absolute Neuts (auto) 11.5 H Absolute Nucleated RBC 0.000 Nucleated RBC % (auto) 0.0 PT 11.9 INR 1.0 Anion Gap 18 Estim Creat Clear Calc 38.8 Estimated GFR 54 Random Glucose 134 H Calcium 8.9 Magnesium 1.8 Total Bilirubin 0.9 Direct Bilirubin 0.3 AST 22 ALT 15 Alkaline Phosphatase 68 Total Protein 6.7 Albumin 4.1 Lipase 18 Urine Color Urine Appearance Urine pH Ur Specific [place] Urine Protein Urine Glucose (UA) Urine Ketones Urine Blood Urine Nitrite Ur Leukocyte Esterase Urine RBC Urine WBC Ur Squamous Epith Cells Urine Bacteria COVID-19 ([facility]) COVID-19 Clin Com 10/27/20 10/27/20 16:50 17:15 MCV MCH MCHC RDW Plt Count MPV Immature Gran % (Auto) Neut % (Auto) Lymph % (Auto) [place] % (Auto) Eos % (Auto) Baso % (Auto) Lymph # (Auto) [place] # (Auto) Eos # (Auto) Baso # (Auto) Abs Immat Gran (auto) Absolute Neuts (auto) Absolute Nucleated RBC Nucleated RBC % (auto) PT INR Anion Gap Estim Creat Clear Calc Estimated GFR Random Glucose Calcium Magnesium Total Bilirubin Direct Bilirubin AST ALT Alkaline Phosphatase Total Protein Albumin Lipase Urine Color PINK Urine Appearance HAZY Urine pH 6.5 Ur Specific [place] 1.010 Urine Protein 1+ H Urine Glucose (UA) NEG Urine Ketones 5 Urine Blood 3+ H Urine Nitrite NEG Ur Leukocyte Esterase NEG Urine RBC 76-150 H Urine WBC 0 Ur Squamous Epith Cells 2+ Urine Bacteria 4+ COVID-19 ([facility]) Negative COVID-19 Clin Com See Note Imaging Radiologist's Impressions: Impressions Abdomen/Pelvis CT 10/27/20 12:12 IMPRESSION: 1. Abnormal findings with dilated small bowel loops indicate a small bowel obstruction. The transition point appears to be in the mid lower abdomen. 2. Prominent intrahepatic and extrahepatic biliary dilatation, which appears similar as compared to previous. There are multiple cystic lesions present in the pancreas, suboptimally visualized. These are better visualized on the prior CT pancreatic mass protocol of 01/04/2019. This includes cystic lesions in the pancreatic head, tail, incompletely evaluated. Side branch intraductal papillary mucinous neoplasm remains in the differential. Recommend further evaluation with MRI pancreas protocol, or CT abdomen pancreatic protocol for further evaluation. 3. Right renal 5.4 cm cyst. 4. Bulky anteverted uterus containing multiple low-attenuation foci, suboptimally evaluated. Recommend further evaluation with follow-up pelvic ultrasound. Chest X-Ray 10/27/20 17:28 IMPRESSION: Tip of nasogastric tube in the stomach. Elevated right hemidiaphragm. The lungs are clear. Assessment and Plan (1) Atrial fibrillation with RVR: Status: Acute (2) Small bowel obstruction: Status: Acute (3) Hematuria: Status: Acute 84-year-old female with past medical history of AFib, HTN who presents to the hospital with complaints of abdominal pain and vomiting found to have small- bowel obstruction as well as AFib with RVR # small-bowel obstruction - has history of bowel interventions including appendectomy, as well as cholecystectomy - last BM was 3 days ago - general surgery is on consult - will follow their recommendation # AFib with RVR - unclear patient has been taking any of her medications since June -on review of her last filled records patient last filled in June, - has some clear aspect of dementia - at this time will resume her home diltiazem, - she is on Cardizem drip will titrate off as tolerated - continue apixaban # hematuria - has history of this with her urologist intermittently taking her of her apixaban - hemoglobin is stable - given her stable hemoglobin will continue apixaban - if has large bleed and or hemodynamic significant bleed. Apixaban - consult urology # HTN - elevated - most likely secondary to noncompliance - continue diltiazem as well as Ibersartan DVT ppx: Apixaban
--- NOTE | 2020-10-27 20:40 | PC.NURSE ---
2034: attempted to call report to doug holman. awaiting call back.
[2020-10-28] VITALS (11 sets, daily range): BP systolic 129–165; BP diastolic 61–83; PULSE 93–130; RESP 18–20; TEMP 36.4–37.1; O2SAT 93–96
[2020-10-28] MEDS: 0.9 % Sodium Chloride Flush 3 ML SYRINGE IVFLUSH ×2 (00:12→08:05)
[2020-10-28] MEDS: dilTIAZem HCL 125 MG in 0.9 % Sodium Chloride 100 ML 15 MG IVCONT (03:51)
[2020-10-28 05:09] LABS: MANUAL DIFF FLAG NO
[2020-10-28 05:13] LABS: Basophils Percent Auto 0.1 % (0-2); Hematocrit 45.5 % (37-47); Hemoglobin 14.8 g/dl (12.0-16.0); Imm Gran Abs Auto 0.06 X10*3/uL (0.00-0.03); Imm Gran Pct Auto 0.4 % (0.0-0.4); Lymphocytes Percent Auto 7.7 % (20-40); Mean Corpuscular HGB Conc 32.5 g/dl (31.0-35.0); Mean Corpuscular Hemoglobin 29.8 pg (27.0-33.0); Mean Corpuscular Volume 91.7 fL (80-98); Mean Platelet Volume 10.7 fL (9.4-12.3); Monocytes Absolute Auto 1.2 X10*3/uL (0.1-1.2); Monocytes Percent Auto 8.6 % (2-11); Neutrophils Absolute Auto 11.1 X10*3/uL (2.0-8.3); Neutrophils Percent Auto 83.2 % (45-73); Platelet Count 264 X10*3/uL (160-400); Red Blood Count 4.96 X10*6/uL (4.20-5.50); Red Cell Distribution Width 14.6 % (11.0-16.0); White Blood Count 13.3 X10*3/uL (4.8-10.8)
[2020-10-28 05:39] LABS: Anion Gap 19 (12-20); Blood Urea Nitrogen 17 mg/dL (9-16); Carbon Dioxide 25 mmol/L (22-29); Chloride 98 mmol/L (96-108); Estimated Glomerular Filt Rate > 60; Glucose Random 112 mg/dL (60-115); Potassium 3.2 mmol/L (3.3-5.1); Sodium 139 mmol/L (135-145)
[2020-10-28] MEDS: Valsartan 40 MG TABLET PO (08:04)
[2020-10-28] MEDS: Apixaban 2.5 MG TABLET PO (08:04)
[2020-10-28] MEDS: dilTIAZem HCL CD 120 MG CAP.ER.DEG PO (08:05)
--- NOTE | 2020-10-28 08:27 | P.CONGS_ITS ---
History of Present Illness Consult details Consult date: 10/28/20 Narrative: 84-year-old female admitted yesterday after room because of partial small-bowel obstruction. She apparently was brought the ER yesterday afternoon because of abdominal pain with vomiting. This had been going on for about 1-2 days. The patient is not a very good historian and does not seem to be able to provide details. She does state that she is much better today. She denies any vomiting overnight. She denies any abdominal pain at this time. She says her last bowel movement about 3 days ago. It is uncertain whether she has passed flatus overnight. She had a CAT scan showing dilatation of the small bowel with what appears to be a transition point in the pelvis. The patient has a low midline surgical scar. Review of Systems Constitutional: Constitutional: Denies chills and Denies fever(s) Cardiovascular: Cardiovascular: Denies chest pain, Denies dyspnea and Denies dyspnea on exertion Respiratory: Respiratory: Denies cough, Denies dyspnea and Denies dyspnea on exertion Gastrointestinal: Gastrointestinal: Denies hematochezia and Denies change in bowel habits Genitourinary: Genitourinary: Reports hematuria Musculoskeletal: Musculoskeletal: Denies back pain and Denies limited range of motion Neurologic: Denies focal weakness and Denies convulsions Psychiatric: Psychiatric: Denies depression and Denies mood swings PMFSH Past Medical History Medical History (Updated 10/28/20 @ 06:10 by Leanna Howard MD) Afib HTN (hypertension) Family History Family History Father No problems noted. Mother No problems noted. Surgical History Surgical History History of appendectomy History of carpal tunnel surgery History of cholecystectomy Social History Social History Household Members: Spouse Housing: House Do you presently have visiting nurse or other home services: No Alcohol intake: never Smoking Status: Former smoker Smoked in Last 30 Days: No Use of substances other than those prescribed or required for medical reasons: No Currently Displaying Signs/Symptoms of Drug Intoxication Withdrawal: No Have you been hit, kicked, punched, or otherwise hurt by someone within the past year? If so, by whom?: No Do you feel safe in your current relationship?: No Is there a partner from a previous relationship who is making you feel unsafe now?: No Are you made to feel afraid or neglected: No Advance Directives: No Advance Directives Information Provided: No Do you have thoughts of harming others: None Do you have a plan to hurt others: No Plan Recently lost weight without trying: No Patient : No : No Poor oral hygiene: No Meds Allergies Allergy/AdvReac Type Severity Reaction Status Date / Time perfume Allergy Intermediate SNEEZES Verified 04/06/20 13:59 solifenacin [Vesicare] Allergy Unknown swollen Verified 07/03/19 00:00 lips Active Medications: Current Medications Generic Name Dose Route Start Last Admin Trade Name Freq PRN Reason Stop Dose Admin Acetaminophen 650 mg 10/27/20 19:55 Acetaminophen 325 Mg Tablet NG-TUBE Q6H PRN Pain, Mild (Pain Scale 1-3) Diltiazem HCl 125 mg/ Sodium 125 mls @ 0 mls/hr 10/27/20 18:45 10/28/20 08:05 Chloride IVCONT 10 mg/hr .Q0M MOODY 10 mls/hr Titration Protocol Per Protocol Morphine Sulfate 4 mg 10/27/20 19:55 Morphine Sulfate 4 Mg/Ml Cartridge IVPUSH Q4H PRN Pain, Severe (Pain Scale 7-10) Ondansetron HCl 4 mg 10/27/20 19:55 Ondansetron Hcl 4 Mg/2 Ml Vial IVPUSH Q8H PRN Nausea and Vomiting Sodium Chloride 3 ml 10/28/20 00:00 10/28/20 08:05 0.9 % Sodium Chloride Flush 3 Ml Syringe IVFLUSH 3 ml QSMEFT [facility] Administration Home Medications Medication Instructions Recorded Confirmed Last Taken Type apixaban [Eliquis] 2.5 mg PO DAILY 10/27/20 10/27/20 Unknown History diltiazem HCl 120 mg PO DAILY 10/27/20 10/27/20 Unknown History irbesartan 1 tab PO DAILY 10/27/20 10/27/20 Unknown History tramadol 1 tab PO BEDTIME PRN 10/27/20 10/27/20 Unknown History Physical Exam Vital Signs: Vital Signs: Last Vital Signs Temp 98 F 10/28/20 07:01 Pulse 99 10/28/20 08:05 Resp 18 10/28/20 07:01 BP 160/83 H 10/28/20 08:05 Pulse Ox 96 10/28/20 07:01 Body Mass Index 31.2 Const: General: comfortable and no acute distress Neck: Neck: Yes no lymphadenopathy Resp: Auscultation: clear to auscultation bilaterally Cardio: Rhythm: regular rhythm GI: Inspection: No distended Palpation (GI): Soft to palpation, nontender and no guarding Neuro: Other: Unable to provide details but does answer simple questions. Results Labs Result diagrams: 10/28/20 04:17 10/28/20 04:17 Labs: Abnormal lab results 10/27/20 10/27/20 10/27/20 Range/Units 12:34 12:34 16:50 WBC 13.6 H (4.8-10.8) X10*3/uL Neut % (Auto) 84.7 H (45-73) % Lymph % (Auto) 6.7 L (20-40) % Lymph # (Auto) 0.9 L (1.2-4.9) X10*3/uL Abs Immat Gran (auto) 0.05 H (0.00-0.03) X10*3/uL Absolute Neuts (auto) 11.5 H (2.0-8.3) X10*3/uL Potassium 3.1 L (3.3-5.1) mmol/L BUN 19 H (9-16) mg/dL Random Glucose 134 H (60-115) mg/dL Urine Protein 1+ H (NEG-TRACE) MG/DL Urine Blood 3+ H (NEG) Urine RBC 76-150 H (0) /HPF 10/28/20 10/28/20 Range/Units 04:17 04:17 WBC 13.3 H (4.8-10.8) X10*3/uL Neut % (Auto) 83.2 H (45-73) % Lymph % (Auto) 7.7 L (20-40) % Lymph # (Auto) 1.0 L (1.2-4.9) X10*3/uL Abs Immat Gran (auto) 0.06 H (0.00-0.03) X10*3/uL Absolute Neuts (auto) 11.1 H (2.0-8.3) X10*3/uL Potassium 3.2 L (3.3-5.1) mmol/L BUN 17 H (9-16) mg/dL Random Glucose (60-115) mg/dL Urine Protein (NEG-TRACE) MG/DL Urine Blood (NEG) Urine RBC (0) /HPF Short CBC 10/27/20 10/28/20 Range/Units 12:34 04:17 WBC 13.6 H 13.3 H (4.8-10.8) X10*3/uL Hgb 14.1 14.8 (12.0-16.0) g/dl Hct 41.6 45.5 (37-47) % Plt Count 248 264 (160-400) X10*3/uL BMP 10/27/20 10/28/20 12:34 04:17 Sodium 138 139 Potassium 3.1 L 3.2 L Chloride 98 98 Carbon Dioxide 25 25 BUN 19 H 17 H Creatinine 0.98 0.81 Calcium 8.9 9.0 Liver Function 10/27/20 Range/Units 12:34 Total Bilirubin 0.9 (0.0-1.0) mg/dL Direct Bilirubin 0.3 (0.0-0.5) mg/dL AST 22 (5-31) U/L ALT 15 (0-31) U/L Alkaline Phosphatase 68 (39-117) U/L Albumin 4.1 (3.5-5.0) g/dL Urine 10/27/20 Range/Units 16:50 Urine Color PINK Urine Appearance HAZY Urine pH 6.5 (5.0-8.0) Ur Specific [place] 1.010 (1.005-1.025) Urine Protein 1+ H (NEG-TRACE) MG/DL Urine Glucose (UA) NEG (NEG) MG/DL All other labs normal. Imaging Abdomen CT scan report/results: report reviewed and image reviewed CT scan - pelvis: report reviewed and image reviewed Assessment and Plan (1) Small bowel obstruction: Status: Acute She came in with abdominal pain and vomiting. I have reviewed her CAT scan and this does show dilated small bowel loops with what seems to be a transition point in the pelvis. Her presentation is consistent with partial small-bowel obstruction secondary to postop adhesions. She has had an appendectomy in the past with what appears to be a low midline incision. She had an NG tube in place. She says she is much better. Physical exam does not reveal any significant tenderness or distention. I will see how her NG tube output is today and will probably remove the this afternoon. She has a very benign exam. She has other medical problems with atrial fibrillation and hematuria.
--- NOTE | 2020-10-28 09:17 | MHC.CM.PN ---
CM met with Patient at bedside and addressed IMM with her, providing her with the original and placing a copy on the chart. Patient lives in a house with her and she uses a cane to assist with mobility. Patient's goal is to return home and CM has initiated and will follow for dc planning. Patient's PCP is Dr. Sherman Guaman. Patient has a NGT.
[2020-10-28] MEDS: KCl 20 mEq in 0.45% Sod 20 MEQ/1,000 ML IV.SOLN 100 MEQ IVCONT ×2 (09:50→22:03)
--- NOTE | 2020-10-28 10:58 | P.PNIM_ITS ---
Subjective Subjective Date of Service: 10/28/20 Interval History: seen and examined this AM denies abdominal pain at this time reports feeling better reports passing flatus, no BM ROS General - no fevers or chills Cardiovascular - no chest pain Respiratory - no shortness of breath or cough Abdominal- denies pain at this time Physical Exam Vital Signs: Vital Signs: Last Vital Signs Temp 98 F 10/28/20 07:01 Pulse 99 10/28/20 08:05 Resp 18 10/28/20 07:01 BP 160/83 H 10/28/20 08:05 Pulse Ox 96 10/28/20 07:01 Body Mass Index 31.2 Const: Other: oriented to self not to place or time General: cooperative and no acute distress Eyes: General: appearance normal, both eyes and all related structures Resp: Effort & Inspection: normal respiratory effort and able to speak in complete sentences Cardio: Rate: tachycardic Rhythm: abnormal rhythm GI: Other: non tender, no rebound, soft NG without any outpat this morning Skin: General skin exam: no rashes or lesions noted Neuro: Cognition (Neuro): normal cognition Extrem: General: Yes normal to inspection and Yes no pedal edema Objective Data Current Medications Generic Name Dose Route Start Last Admin Trade Name Freq PRN Reason Stop Dose Admin Acetaminophen 650 mg 10/27/20 19:55 Acetaminophen 325 Mg Tablet NG-TUBE Q6H PRN Pain, Mild (Pain Scale 1-3) Diltiazem HCl 125 mg/ Sodium 125 mls @ 0 mls/hr 10/27/20 18:45 10/28/20 08:05 Chloride IVCONT 10 mg/hr .Q0M MOODY 10 mls/hr Titration Protocol Per Protocol Potassium Chloride/Sodium Chloride 20 meq in 1,000 mls @ 100 mls/hr 10/28/20 08:30 10/28/20 09:50 IVCONT 100 mls/hr .Q10H MOODY Administration Morphine Sulfate 4 mg 10/27/20 19:55 Morphine Sulfate 4 Mg/Ml Cartridge IVPUSH Q4H PRN Pain, Severe (Pain Scale 7-10) Ondansetron HCl 4 mg 10/27/20 19:55 Ondansetron Hcl 4 Mg/2 Ml Vial IVPUSH Q8H PRN Nausea and Vomiting Sodium Chloride 3 ml 10/28/20 00:00 10/28/20 08:05 0.9 % Sodium Chloride Flush 3 Ml Syringe IVFLUSH 3 ml QSHIFT MOODY Administration Labs CBC & Chem 7: 10/28/20 04:17 10/28/20 04:17 Assessment and Plan (1) Atrial fibrillation with RVR: Status: Acute (2) Small bowel obstruction: Status: Acute (3) Hematuria: Status: Acute Assessment and Plan: 84-year-old female with past medical history of AFib, HTN who presents to the [facility] with complaints of abdominal pain and vomiting found to have small-bowel obstruction as well as AFib with RVR 1. SBO clinically appears improving Gen Surg input appreciated -- plan to remove NG later today if output remains minimal exam is benign, she reports passing flatus continue IVF 2. AFib with RVR unclear how compliant she is will her home meds (last fill history of her cardizem was back in March 2020) continue cardizem gtt while NPO also on Eliquis, unclear how compliant with her meds -- called listed NOK, no answer anticoagulation use TBD 3. hematuria intermittent and self limited outpatient f/u with her own urologist 4. HTN cardizem as above hold oral meds while NG in place presumed full code until d/w family dvt pptx -- mechanical until SBO fully resolves
[2020-10-28] MEDS: dilTIAZem HCL 125 MG in 0.9 % Sodium Chloride 100 ML IVCONT (15:28)
[2020-10-28] MEDS: Throat Lozenge, Medicated LOZENGE 1 LOZENGE MUCOUS MEM (20:36)
[2020-10-29] VITALS (10 sets, daily range): BP systolic 124–154; BP diastolic 73–89; PULSE 87–116; RESP 18–20; TEMP 36.2–36.8; O2SAT 94–96
[2020-10-29] MEDS: 0.9 % Sodium Chloride Flush 3 ML SYRINGE IVFLUSH ×3 (00:18→20:07)
--- NOTE | 2020-10-29 01:49 | PC.NURSE ---
i Dr Bai notified 1. pt experienced an asymptomatic 6 beat vt 2. her intrinsic rhythm is afib apical 85-95 bpm 3. she is on a diltiazem drip at 5mg/hr 4. her K was 3.2 this am 5. she is receiving iv rx 1/2 ns with 20 meq kcl at 100ml/hr 6. she is npo with ngt 7. last mg++ on 10-27 1.8 -plan will check mg++ and K+ levels.
[2020-10-29 02:48] LABS: Anion Gap 15 (12-20); Blood Urea Nitrogen 20 mg/dL (9-16); Carbon Dioxide 23 mmol/L (22-29); Chloride 101 mmol/L (96-108); Creatinine Clr Calc Pharmacy 48.2; Estimated Glomerular Filt Rate > 60; Glucose Random 107 mg/dL (60-115); Magnesium 1.7 mg/dL (1.6-2.6); Potassium 3.1 mmol/L (3.3-5.1); Sodium 136 mmol/L (135-145)
--- NOTE | 2020-10-29 03:28 | PC.NURSE ---
dr jain called notified 1. labs reviewed K+ 3.1 2. mg 1.7 3. pt removed ngt 4. abdomen soft/nontender/no nausea 5. total ngt drainage since yesterday 200 ml 6. bladder scanned for 600 ml post voiding of 20 ml-plan a. kcl iv replacement b. leave ngt out for now c. insert boyce catheter. please note iv access extremely tenuous-a new # 22 angio inserted left fa.
[2020-10-29] MEDS: Potassium Chloride/H20 10 MEQ/100 ML PIGGYBACK 100 MEQ IV ×4 (04:00→07:36)
--- NOTE | 2020-10-29 07:36 | PM.PNGS ---
Subjective Subjective Date of Service: 10/29/20 Interval history: feels well denies abdl pain no n/v NGT out Physical Exam Vital Signs: Vital Signs: Last Vital Signs Temp 98.3 F 10/29/20 03:52 Pulse 99 10/29/20 03:52 Resp 19 10/29/20 03:52 BP 138/79 10/29/20 03:52 Pulse Ox 94 10/29/20 03:52 Body Mass Index 31.2 PT 11.9 SEC (10.8-13 .0) 10/27/20 12:34 Const: General: comfortable and no acute distress Resp: Effort & Inspection: normal respiratory effort Cardio: Rhythm: abnormal rhythm GI: Palpation (GI): Soft to palpation, not firm, nontender and no guarding Progress Note: A&P Assessment and plan (1) Small bowel obstruction: Status: Acute Assessment and Plan: SBO is clinically resolved ok to start clear liquids advance as tolerated abdominal exam benign other medical issues as per Hospitalist Fall Risk Details Current Medications: Current Medications Generic Name Dose Route Start Last Admin Trade Name Freq PRN Reason Stop Dose Admin Acetaminophen 650 mg 10/27/20 19:55 Acetaminophen 325 Mg Tablet NG-TUBE Q6H PRN Pain, Mild (Pain Scale 1-3) Benzocaine 1 lozenge 10/28/20 20:24 10/28/20 20:36 Throat Lozenge, Medicated Lozenge MUCOUS MEM 1 lozenge Q2H PRN Administration Sore Throat Diltiazem HCl 125 mg/ Sodium 125 mls @ 0 mls/hr 10/27/20 18:45 10/28/20 20:25 Chloride IVCONT 5 mg/hr .Q0M MOODY 5 mls/hr Titration Protocol Per Protocol Potassium Chloride/Sodium Chloride 20 meq in 1,000 mls @ 100 mls/hr 10/28/20 08:30 10/28/20 22:03 IVCONT 100 mls/hr .Q10H MOODY Administration Potassium Chloride 10 meq in 100 mls @ 100 mls/hr 10/29/20 04:00 10/29/20 06:29 IV 10/29/20 07:59 100 mls/hr Q1H MOODY Administration Morphine Sulfate 4 mg 10/27/20 19:55 Morphine Sulfate 4 Mg/Ml Cartridge IVPUSH Q4H PRN Pain, Severe (Pain Scale 7-10) Ondansetron HCl 4 mg 10/27/20 19:55 Ondansetron Hcl 4 Mg/2 Ml Vial IVPUSH Q8H PRN Nausea and Vomiting Sodium Chloride 3 ml 10/28/20 00:00 10/29/20 00:18 0.9 % Sodium Chloride Flush 3 Ml Syringe IVFLUSH 3 ml QSHIFT MOODY Administration Time Spent With Patient Time: Total time spent is greater than 50% in coordination of care (as documented) at patient's floor/unit and/or counseling patient: Time with patient: 15 - 24 minutes
[2020-10-29] MEDS: KCl 20 mEq in 0.45% Sod 20 MEQ/1,000 ML IV.SOLN 100 MEQ IVCONT ×2 (07:46→17:01)
[2020-10-29 08:39] LABS: Hematocrit 40.1 % (37-47); Hemoglobin 13.5 g/dl (12.0-16.0); Mean Corpuscular HGB Conc 33.7 g/dl (31.0-35.0); Mean Corpuscular Hemoglobin 30.6 pg (27.0-33.0); Mean Corpuscular Volume 90.9 fL (80-98); Mean Platelet Volume 10.6 fL (9.4-12.3); Platelet Count 246 X10*3/uL (160-400); Red Blood Count 4.41 X10*6/uL (4.20-5.50); Red Cell Distribution Width 14.5 % (11.0-16.0); White Blood Count 13.9 X10*3/uL (4.8-10.8)
[2020-10-29 08:58] LABS: Glucose Urine UA NEG (NEG); Leukocyte Esterase Urine TRACE (NEG); Nitrite Urine NEG (NEG); UACC Culture Trigger YES; Urine Blood 3+ (NEG); Urine Ketones 40 MG/DL (NEG); Urine Protein TRACE MG/DL (NEG-TRACE)
[2020-10-29 09:01] LABS: Appearance Urine HAZY; Color Urine YELLOW
[2020-10-29 09:14] LABS: Bacteria Urine TRACE /LPF; Squamous Epithelial Cell Urine 1+ /LPF
--- NOTE | 2020-10-29 10:28 | P.PNIM_ITS ---
Subjective Subjective Date of Service: 10/29/20 Interval History: seen and examined this AM bedside pt denies any pain eating clears this AM d/w the patient and her re: soila. tells me she was taken off this due to bleeding ROS General - no fevers or chills Cardiovascular - no chest pain Respiratory - no shortness of breath or cough Abdominal- denies pain at this time Physical Exam Vital Signs: Vital Signs: Last Vital Signs Temp 97.2 F 10/29/20 07:42 Pulse 89 10/29/20 07:42 Resp 18 10/29/20 07:42 BP 139/74 10/29/20 07:42 Pulse Ox 94 10/29/20 07:42 Body Mass Index 31.2 Const: Other: oriented to self not to place or time General: cooperative and no acute distress Eyes: General: appearance normal, both eyes and all related structures Resp: Effort & Inspection: normal respiratory effort and able to speak in complete sentences Cardio: Rate: tachycardic Rhythm: abnormal rhythm GI: Other: non tender, no rebound, soft Skin: General skin exam: no rashes or lesions noted Neuro: Cognition (Neuro): normal cognition Extrem: General: Yes normal to inspection and Yes no pedal edema Objective Data Current Medications Generic Name Dose Route Start Last Admin Trade Name Freq PRN Reason Stop Dose Admin Acetaminophen 650 mg 10/27/20 19:55 Acetaminophen 325 Mg Tablet NG-TUBE Q6H PRN Pain, Mild (Pain Scale 1-3) Benzocaine 1 lozenge 10/28/20 20:24 10/28/20 20:36 Throat Lozenge, Medicated Lozenge MUCOUS MEM 1 lozenge Q2H PRN Administration Sore Throat Diltiazem HCl 125 mg/ Sodium 125 mls @ 0 mls/hr 10/27/20 18:45 10/28/20 20:25 Chloride IVCONT 5 mg/hr .Q0M MOODY 5 mls/hr Titration Protocol Per Protocol Potassium Chloride/Sodium Chloride 20 meq in 1,000 mls @ 100 mls/hr 10/28/20 08:30 10/29/20 07:46 IVCONT 100 mls/hr .Q10H MOODY Administration Morphine Sulfate 4 mg 10/27/20 19:55 Morphine Sulfate 4 Mg/Ml Cartridge IVPUSH Q4H PRN Pain, Severe (Pain Scale 7-10) Ondansetron HCl 4 mg 10/27/20 19:55 Ondansetron Hcl 4 Mg/2 Ml Vial IVPUSH Q8H PRN Nausea and Vomiting Sodium Chloride 3 ml 10/28/20 00:00 10/29/20 07:41 0.9 % Sodium Chloride Flush 3 Ml Syringe IVFLUSH Not Given QSHIFT MOODY Labs CBC & Chem 7: 10/29/20 08:24 10/29/20 02:14 Assessment and Plan (1) Atrial fibrillation with RVR: Status: Acute (2) Small bowel obstruction: Status: Acute (3) Hematuria: Status: Acute Assessment and Plan: 84-year-old female with past medical history of AFib, HTN who presents to the hospital with complaints of abdominal pain and vomiting found to have small- bowel obstruction as well as AFib with RVR 1. SBO clinically resolved NG removed clears started continue IVF until diet stable 2. AFib with RVR rates controlled on cardizem gtt will start her on oral cardizem and d/c drip if rates remain control not on anticoagulation -- per stopped due to history of bleeding 3. hematuria resolved 4. HTN cardizem 5. Pyuria / leukocytosis / urinary rentention will give empiric rocephin given recent hematuria recheck UA and send cultures keep boyce, voiding trial Full Code dvt pptx -- mechanical
[2020-10-29] MEDS: cefTRIAXone sodium 1 GM in 0.9 % Sodium Chloride 50 ML IV (11:00)
[2020-10-29] MEDS: Potassium Chloride Packet 20 MEQ PACKET 40 MEQ PO (11:00)
[2020-10-29] MEDS: dilTIAZem HCL 30 MG TABLET PO ×3 (12:46→20:06)
[2020-10-30] VITALS (8 sets, daily range): BP systolic 92–165; BP diastolic 56–82; PULSE 88–114; RESP 15–18; TEMP 36.2–36.7; O2SAT 95–98
[2020-10-30] MEDS: KCl 20 mEq in 0.45% Sod 20 MEQ/1,000 ML IV.SOLN 100 MEQ IVCONT (02:44)
[2020-10-30 06:48] LABS: Hematocrit 41.5 % (37-47); Hemoglobin 13.9 g/dl (12.0-16.0); Mean Corpuscular HGB Conc 33.5 g/dl (31.0-35.0); Mean Corpuscular Hemoglobin 30.3 pg (27.0-33.0); Mean Corpuscular Volume 90.6 fL (80-98); Mean Platelet Volume 10.8 fL (9.4-12.3); Platelet Count 257 X10*3/uL (160-400); Red Blood Count 4.58 X10*6/uL (4.20-5.50); Red Cell Distribution Width 14.4 % (11.0-16.0); White Blood Count 9.6 X10*3/uL (4.8-10.8)
[2020-10-30 07:31] LABS: Anion Gap 14 (12-20); Blood Urea Nitrogen 13 mg/dL (9-16); Calcium 8.1 mg/dL (8.4-10.2); Carbon Dioxide 25 mmol/L (22-29); Chloride 101 mmol/L (96-108); Creatinine Clr Calc Pharmacy 50.7; Estimated Glomerular Filt Rate > 60; Glucose Random 99 mg/dL (60-115); Potassium 3.9 mmol/L (3.3-5.1); Sodium 136 mmol/L (135-145)
--- NOTE | 2020-10-30 09:55 | P.PNIM_ITS ---
Subjective Subjective Date of Service: 10/30/20 Interval History: seen and examined this AM feeling better daily no abd pain / n / v passing flatus, but no BM reported yet ROS General - no fevers or chills Cardiovascular - no chest pain Respiratory - no shortness of breath or cough Abdominal- no abdominal pain, nausea, vomiting, diarrhea Physical Exam Vital Signs: Vital Signs: Last Vital Signs Temp 98.1 F 10/30/20 07:18 Pulse 91 10/30/20 07:18 Resp 18 10/30/20 07:18 BP 165/77 H 10/30/20 07:18 Pulse Ox 96 10/30/20 07:18 Body Mass Index 31.2 Const: Other: oriented to self not to place or time General: cooperative and no acute distress Eyes: General: appearance normal, both eyes and all related structures Resp: Effort & Inspection: normal respiratory effort and able to speak in complete sentences Cardio: Rate: tachycardic Rhythm: abnormal rhythm GI: Other: non tender, no rebound, soft Skin: General skin exam: no rashes or lesions noted Neuro: Cognition (Neuro): normal cognition Extrem: General: Yes normal to inspection and Yes no pedal edema Objective Data Current Medications Generic Name Dose Route Start Last Admin Trade Name Freq PRN Reason Stop Dose Admin Acetaminophen 650 mg 10/27/20 19:55 Acetaminophen 325 Mg Tablet NG-TUBE Q6H PRN Pain, Mild (Pain Scale 1-3) Benzocaine 1 lozenge 10/28/20 20:24 10/28/20 20:36 Throat Lozenge, Medicated Lozenge MUCOUS MEM 1 lozenge Q2H PRN Administration Sore Throat Diltiazem HCl 120 mg 10/30/20 09:00 Diltiazem Hcl Cd 120 Mg Cap.Er.Deg PO DAILY MOOYD Protocol Ceftriaxone Sodium 1 gm/ 50 mls @ 100 mls/hr 10/29/20 10:45 10/29/20 11:50 Sodium Chloride IV Infused Q24H MOODY Infusion Morphine Sulfate 4 mg 10/27/20 19:55 Morphine Sulfate 4 Mg/Ml Cartridge IVPUSH Q4H PRN Pain, Severe (Pain Scale 7-10) Ondansetron HCl 4 mg 10/27/20 19:55 Ondansetron Hcl 4 Mg/2 Ml Vial IVPUSH Q8H PRN Nausea and Vomiting Sodium Chloride 3 ml 10/28/20 00:00 10/29/20 20:07 0.9 % Sodium Chloride Flush 3 Ml Syringe IVFLUSH 3 ml QSHIFT MOODY Administration Labs CBC & Chem 7: 10/30/20 05:39 10/30/20 05:39 Assessment and Plan (1) Atrial fibrillation with RVR: Status: Acute (2) Small bowel obstruction: Status: Acute (3) Hematuria: Status: Acute Assessment and Plan: 84-year-old female with past medical history of AFib, HTN who presents to the hospital with complaints of abdominal pain and vomiting found to have small- bowel obstruction as well as AFib with RVR 1. SBO clinically resolving tolerated clear, advanced to full liquids today Gen Surg input appreciated 2. AFib with RVR transition from short acting cardizem to long acting, d/c cardizem gtt not on OAC due to history of bleeding 3. hematuria resolved 4. HTN cardizem 5. Pyuria / leukocytosis / urinary rentention will give empiric rocephin given recent hematuria recheck UA and send cultures no evidence of sepsis voiding trial today Full Code dvt pptx -- mechanical
[2020-10-30] MEDS: dilTIAZem HCL CD 120 MG CAP.ER.DEG PO (10:14)
[2020-10-30] MEDS: Tamsulosin HCL 0.4 MG CAPSULE PO (10:15)
[2020-10-30] MEDS: 0.9 % Sodium Chloride Flush 3 ML SYRINGE IVFLUSH ×3 (10:15→19:38)
[2020-10-30] MEDS: cefTRIAXone sodium 1 GM in 0.9 % Sodium Chloride 50 ML IV (10:16)
--- NOTE | 2020-10-30 11:02 | MHC.CM.PN ---
Per ROUNDS discussion, Patient is not yet medically cleared for dc (IV Ceftriaxone/UTI, advancing diet, pending PT eval). Home is the goal for dc and CM will follow for possible need to adjust the dc plan.
--- NOTE | 2020-10-30 16:43 | PM.PNGS ---
Subjective Subjective Date of Service: 10/30/20 Interval history: Feels well today No nausea or vomiting passing flatus Denies abdominal pain Physical Exam Vital Signs: Vital Signs: Last Vital Signs Temp 97.2 F 10/30/20 15:52 Pulse 106 H 10/30/20 15:52 Resp 18 10/30/20 15:52 BP 136/70 10/30/20 15:52 Pulse Ox 97 10/30/20 15:52 Body Mass Index 31.2 Chemistry 10/28/20 10/29/20 10/30/20 04:17 02:14 05:39 Sodium 139 136 136 Potassium 3.2 L 3.1 L 3.9 D Carbon Dioxide 25 23 25 BUN 17 H 20 H 13 Creatinine 0.81 0.79 0.75 Calcium 9.0 8.0 L D 8.1 L Hematology 10/28/20 10/29/20 10/30/20 04:17 08:24 05:39 WBC 13.3 H 13.9 H 9.6 Hgb 14.8 13.5 13.9 Plt Count 264 246 257 Urinalysis 10/27/20 10/29/20 16:50 08:50 Urine Color PINK YELLOW Urine Appearance HAZY HAZY Urine pH 6.5 6.0 Ur Specific Gravit y 1.010 1.020 Urine Protein 1+ H TRACE Urine Glucose (UA) NEG NEG Urine Ketones 5 40 Urine Blood 3+ H 3+ H Urine Nitrite NEG NEG Ur Leukocyte Tiff ase NEG TRACE H Urine RBC 76-150 H 10-14 H Urine WBC 0 10-14 H Ur Squamous Epith Cells 2+ 1+ Const: General: comfortable and no acute distress Resp: Effort & Inspection: normal respiratory effort Cardio: Rhythm: regular rhythm GI: Inspection: No distended Palpation (GI): Soft to palpation, not firm, nontender and no guarding Progress Note: A&P Assessment and plan (1) Small bowel obstruction: Status: Acute Assessment and Plan: Clinically resolved Diet as tolerated Good GI function The rest of as per the hospitalist service Fall Risk Details Current Medications: Current Medications Generic Name Dose Route Start Last Admin Trade Name Freq PRN Reason Stop Dose Admin Acetaminophen 650 mg 10/27/20 19:55 Acetaminophen 325 Mg Tablet NG-TUBE Q6H PRN Pain, Mild (Pain Scale 1-3) Benzocaine 1 lozenge 10/28/20 20:24 10/28/20 20:36 Throat Lozenge, Medicated Lozenge MUCOUS MEM 1 lozenge Q2H PRN Administration Sore Throat Diltiazem HCl 120 mg 10/30/20 09:00 10/30/20 10:14 Diltiazem Hcl Cd 120 Mg Cap.Er.Deg PO 120 mg DAILY MOODY Administration Protocol Morphine Sulfate 4 mg 10/27/20 19:55 Morphine Sulfate 4 Mg/Ml Cartridge IVPUSH Q4H PRN Pain, Severe (Pain Scale 7-10) Ondansetron HCl 4 mg 10/27/20 19:55 Ondansetron Hcl 4 Mg/2 Ml Vial IVPUSH Q8H PRN Nausea and Vomiting Sodium Chloride 3 ml 10/28/20 00:00 10/30/20 10:15 0.9 % Sodium Chloride Flush 3 Ml Syringe IVFLUSH 3 ml QSHIFT MOODY Administration Time Spent With Patient Time: Total time spent is greater than 50% in coordination of care (as documented) at patient's floor/unit and/or counseling patient: Time with patient: less than 15 minutes
--- NOTE | 2020-10-30 18:39 | PC.NURSE ---
Boyce catheter removed this AM around [address] Villarreal orders for a voiding trial. Bladder scanned pt at [address] Woodall made aware. instructed to bladder scan again around [address] boyce. Bladder scanned pt at 1820 for 381mL. Pt voided 25mL of light yellow urine. Dr Woodall made aware. Instructed to hold off on placing boyce and to monitor urine ouput overnight. This RN will make oncoming nurse aware.
--- NOTE | 2020-10-30 21:08 | PC.NURSE ---
Addendum entered by Anastasiia Tanner RN 10/30/20 21:29: 16g indwelling catheter placed, 460mL boyce bag output after insertion. Will continue to monitor. Original Note: During report, was told pt had boyce removed in morning and to monitor with bladder scanner. Bladder scanned pt at 2100, showing 458 mL retaining. Placed patient on commode to attempt urination. No output on commode. Dr. Boyd aware, ordered to replace boyce.
[2020-10-31] VITALS (8 sets, daily range): BP systolic 113–141; BP diastolic 58–77; PULSE 97–110; RESP 16–20; TEMP 36.3–37.4; O2SAT 94–98
[2020-10-31] MEDS: dilTIAZem HCL CD 120 MG CAP.ER.DEG PO (09:59)
[2020-10-31] MEDS: 0.9 % Sodium Chloride Flush 3 ML SYRINGE IVFLUSH ×3 (09:59→20:14)
--- NOTE | 2020-10-31 10:25 | P.PNIM_ITS ---
Subjective Subjective Date of Service: 10/31/20 Interval History: seen and examined no complaints passing flatus, but no BM overnight events reviewed -- boyce placed due to urinary retention ROS General - no fevers or chills Cardiovascular - no chest pain Respiratory - no shortness of breath or cough Abdominal- no abdominal pain, nausea, vomiting, diarrhea Physical Exam Vital Signs: Vital Signs: Last Vital Signs Temp 98 F 10/31/20 07:03 Pulse 107 H 10/31/20 09:59 Resp 20 10/31/20 07:03 BP 124/66 10/31/20 09:59 Pulse Ox 97 10/31/20 07:03 Body Mass Index 31.2 Const: Other: General - no acute distress, appears comfortable Cardiovascular - regular rate and rhythm, S1-S2 Lungs - normal respiratory effort, clear to auscultation bilaterally, no wheezing Abdomen - soft, nontender, no rebound or guarding Extremities - no edema bilaterally Neuro - awake and alert, no focal deficits Objective Data Current Medications Generic Name Dose Route Start Last Admin Trade Name Freq PRN Reason Stop Dose Admin Acetaminophen 650 mg 10/27/20 19:55 Acetaminophen 325 Mg Tablet NG-TUBE Q6H PRN Pain, Mild (Pain Scale 1-3) Benzocaine 1 lozenge 10/28/20 20:24 10/28/20 20:36 Throat Lozenge, Medicated Lozenge MUCOUS MEM 1 lozenge Q2H PRN Administration Sore Throat Diltiazem HCl 120 mg 10/30/20 09:00 10/31/20 09:59 Diltiazem Hcl Cd 120 Mg Cap.Er.Deg PO 120 mg DAILY [facility] Administration Protocol Morphine Sulfate 4 mg 10/27/20 19:55 Morphine Sulfate 4 Mg/Ml Cartridge IVPUSH Q4H PRN Pain, Severe (Pain Scale 7-10) Ondansetron HCl 4 mg 10/27/20 19:55 Ondansetron Hcl 4 Mg/2 Ml Vial IVPUSH Q8H PRN Nausea and Vomiting Polyethylene Glycol 17 gm 10/31/20 10:22 Polyethylene Glycol 3350 17 Gm Powd.Pack PO 10/31/20 10:23 ONCE ONE Sodium Chloride 3 ml 10/28/20 00:00 10/31/20 09:59 0.9 % Sodium Chloride Flush 3 Ml Syringe IVFLUSH 3 ml QSHIFT MOODY Administration Labs CBC & Chem 7: 10/30/20 05:39 10/30/20 05:39 Microbiology Microbiology Results: Microbiology 10/29/20 Unknown Urine Boyce Port Urine Culture - Final No growth. Assessment and Plan (1) Atrial fibrillation with RVR: Status: Acute (2) Small bowel obstruction: Status: Acute Assessment and Plan: 84-year-old female with past medical history of AFib, HTN who presents to the hospital with complaints of abdominal pain and vomiting found to have small- bowel obstruction as well as AFib with RVR 1. SBO clinically resolving, passing flatus, but no BM yet Gen Surg input appreciated will give miralax 2. AFib with RVR HR 90-100s on oral Cardizem will continue the same 3. hematuria resolved 4. HTN cardizem 5. Pyuria / leukocytosis / urinary rentention urin cx neg x 2 -- rocephin discontinued failed voiding trial keep boyce, increase flomax 0.8mg at bedtime, oupatient urology eval 6. Weakness PT eval Full Code dvt pptx -- mechanical dispo: home vs rehab once bowel function fully returns (has not had a BM yet).
[2020-10-31] MEDS: polyethylene glycoL 3350 17 GM POWD.PACK PO (14:26)
[2020-10-31] MEDS: Tamsulosin HCL 0.4 MG CAPSULE 0.8 MG PO (20:13)
[2020-11-01] VITALS (7 sets, daily range): BP systolic 110–144; BP diastolic 57–86; PULSE 96–115; RESP 15–18; TEMP 36.1–37.3; O2SAT 94–96
[2020-11-01] MEDS: dilTIAZem HCL CD 120 MG CAP.ER.DEG PO (07:53)
[2020-11-01] MEDS: 0.9 % Sodium Chloride Flush 3 ML SYRINGE IVFLUSH ×2 (07:54→16:27)
--- NOTE | 2020-11-01 10:32 | P.PNIM_ITS ---
Subjective Subjective Date of Service: 11/01/20 Interval History: seen and examined doing better daily denies abdominal pain, nvd, passing flatus but has not moved her bowels denies palp / chest pain ROS General - no fevers or chills Cardiovascular - no chest pain Respiratory - no shortness of breath or cough Abdominal- no abdominal pain, nausea, vomiting, diarrhea Physical Exam Vital Signs: Vital Signs: Last Vital Signs Temp 97.7 F 11/01/20 07:11 Pulse 115 H 11/01/20 07:53 Resp 17 11/01/20 07:11 BP 138/63 11/01/20 07:53 Pulse Ox 94 11/01/20 07:11 Body Mass Index 31.2 Const: Other: General - no acute distress, appears comfortable Cardiovascular - IRR Lungs - normal respiratory effort, clear to auscultation bilaterally, no wheezing Abdomen - soft, nontender, no rebound or guarding Extremities - no edema bilaterally Neuro - awake and alert, no focal deficits Objective Data Current Medications Generic Name Dose Route Start Last Admin Trade Name Freq PRN Reason Stop Dose Admin Acetaminophen 650 mg 10/27/20 19:55 Acetaminophen 325 Mg Tablet NG-TUBE Q6H PRN Pain, Mild (Pain Scale 1-3) Benzocaine 1 lozenge 10/28/20 20:24 10/28/20 20:36 Throat Lozenge, Medicated Lozenge MUCOUS MEM 1 lozenge Q2H PRN Administration Sore Throat Diltiazem HCl 120 mg 10/30/20 09:00 11/01/20 07:53 Diltiazem Hcl Cd 120 Mg Cap.Er.Deg PO 120 mg DAILY MOODY Administration Protocol Lactulose 20 gm 11/01/20 11:00 Lactulose 20 Gm/30 Ml Solution PO 11/01/20 11:01 ONCE ONE Morphine Sulfate 4 mg 10/27/20 19:55 Morphine Sulfate 4 Mg/Ml Cartridge IVPUSH Q4H PRN Pain, Severe (Pain Scale 7-10) Ondansetron HCl 4 mg 10/27/20 19:55 Ondansetron Hcl 4 Mg/2 Ml Vial IVPUSH Q8H PRN Nausea and Vomiting Sodium Chloride 3 ml 10/28/20 00:00 11/01/20 07:54 0.9 % Sodium Chloride Flush 3 Ml Syringe IVFLUSH 3 ml QSHIFT MOODY Administration Tamsulosin HCl 0.8 mg 10/31/20 21:00 10/31/20 20:13 Tamsulosin Hcl 0.4 Mg Capsule PO 0.8 mg BEDTIME MOODY Administration Labs CBC & Chem 7: 10/30/20 05:39 10/30/20 05:39 Microbiology Microbiology Results: Microbiology 10/29/20 Unknown Urine Boyce Port Urine Culture - Final No growth. Assessment and Plan (1) Atrial fibrillation with RVR: Status: Acute (2) Small bowel obstruction: Status: Acute Assessment and Plan: 84-year-old female with past medical history of AFib, HTN who presents to the hospital with complaints of abdominal pain and vomiting found to have small- bowel obstruction as well as AFib with RVR 1. SBO tolerating diet and passing flatus, but has not moved her bowels yet KUB showing improvement in her bowel dilatation continue diet bowel regime -- miralax daily and will give a dose of lactulose 2. AFib with RVR rates stable at reset 90-100s, but increase with exertion to 120/130s continue oral cardizem not on oac due to history of bleeding 3. hematuria resolved 4. HTN cardizem 5. Pyuria / leukocytosis / urinary rentention urin cx neg x 2 -- rocephin discontinued failed voiding trial - keep boyce, increase flomax 0.8mg at bedtime, outpatient urology referral 6. Weakness will need STR in agreement Full Code dvt pptx -- mechanical dispo: home vs rehab once bowel function fully returns
[2020-11-01] MEDS: Lactulose 20 GM/30 ML SOLUTION PO (11:44)
--- NOTE | 2020-11-01 13:45 | MHC.CM.PN ---
DP Female 84 DX AFIB RVR SBO The pt refuses STR; which is recommended by PT. Family support this decision. New [facility] referral made.
--- NOTE | 2020-11-01 17:39 | PC.NURSE ---
HAIRSPRING TRUING INSPECTOR REPORTED PT FELT DIZZY WHILE WALKING TO BATHROOM , ASSESSED PT IN BATHROOM. NO LOSS OF CONSCIOUSNESS. ASSISTED TO WHEELCHAIR WITH MAX ASSIST. PT FELT URGE TO GO TO BATHROOM AGAIN WHILE GETTING BACK INTO BED. ASSISTED TO COMMODE NEXT TO BED. MARIPOSA RUELAS BROWN BM. NOTIFIED. VITALS TAKEN BY RN. HR 106 BP 130/61 96% ON ROOM AIR. PT REPORTS FEELING MUCH BETTER WILL CONTINUE TO MONITOR.
[2020-11-01] MEDS: Tamsulosin HCL 0.4 MG CAPSULE 0.8 MG PO (19:30)
--- NOTE | 2020-11-02 | ECG_ITS ---
Test Reason : eval for afib rvr Blood Pressure : / mmHG Vent. Rate : 094 BPM Atrial Rate : 096 BPM P-R Int : 000 ms QRS Dur : 078 ms QT Int : 376 ms P-R-T Axes : 000 -12 019 degrees QTc Int : 470 ms Atrial fibrillation Abnormal ECG When compared to the previous EKG of No significant changes seen Referred By: Sara Holden Electronically Signed By:Charli Jameson
[2020-11-02] MEDS: 0.9 % Sodium Chloride Flush 3 ML SYRINGE IVFLUSH ×2 (00:25→09:26)
[2020-11-02 04:00] VITALS: BP 145/70; PULSE 102; RESP 18; TEMP 37; O2SAT 95
[2020-11-02 07:18] VITALS: BP 148/67; PULSE 99; RESP 18; TEMP 36.4; O2SAT 96
[2020-11-02 09:24] VITALS: BP 148/67; PULSE 99
[2020-11-02] MEDS: dilTIAZem HCL CD 120 MG CAP.ER.DEG PO (09:24)
[2020-11-02 11:35] VITALS: BP 112/58; PULSE 101; RESP 16; TEMP 36.4; O2SAT 97
--- NOTE | 2020-11-02 13:28 | P.DS_ITS ---
DS: Providers Provider Date of Service: 11/02/20 <Sara Holden NP - Last Filed: 11/02/20 15:16> 11/02/20 <Will Villaseñor MD - Last Filed: 11/02/20 13:46> Date of admission: 10/27/20 19:50 <Sara Holden NP - Last Filed: 11/02/20 15:16> Date of discharge: 11/02/20 <Sara Holden NP - Last Filed: 11/02/20 15:16> Primary care physician: [facility] <Sara Holden NP - Last Filed: 11/02/20 15:16> Admitting clinician: Leanna Howard <Sara Holden NP - Last Filed: 11/02/20 15:16> Attending physician on admission: Leanna Howard <Sara Holden NP - Last Filed: 11/02/20 15:16> Consults: 10/27/20 19:55 Consult to Urology Routine Consulting Provider: Ramses Forrest III Reason for consultation: hematuria Has provider been notified: No 10/28/20 06:10 Consult to General Surgery Routine Consulting Provider: Daniel Dalton Reason for consultation: SBO Has provider been notified: No <Sara Holden NP - Last Filed: 11/02/20 15:16> Attending physician on discharge: Will Villaseñor <Sara Holden NP - Last Filed: 11/02/20 15:16> Discharging clinician: Sara Holden <Sara Holden NP - Last Filed: 11/02/20 15:16> DS: Diagnosis Discharge Diagnosis (1) Atrial fibrillation with RVR: Status: Acute <Sara Holden NP - Last Filed: 11/02/20 15:16> (2) Small bowel obstruction: Status: Acute <Sara Holden NP - Last Filed: 11/02/20 15:16> DS: Medications Discharge Medications Home Medications: Home Medications Medication Instructions Recorded Confirmed diltiazem HCl 120 mg PO DAILY 10/27/20 10/27/20 irbesartan 1 tab PO DAILY 10/27/20 10/27/20 tramadol 1 tab PO BEDTIME PRN 10/27/20 10/27/20 Previous Rx's Medication Instructions Recorded tamsulosin 0.8 mg PO BEDTIME 30 Days #60 cap 11/02/20 <Sara Holden NP - Last Filed: 11/02/20 15:16> DS: Summary Hospital Course Hospital Course: HP as per admitting provider This is an 84-year-old female with possible dementia, HTN, AFib on Eliquis who presents to the hospital with complaints of abdominal pain as well as vomiting. Patient is a very poor historian but answers questions somewhat appropriately. When asked about her last bowel movement she reported that it was 3 days ago, the abdominal pain is diffuse, nonradiating, 9/10, associated with vomiting but reports that improved. She reports that she had some blood in her urine. Denies any headache, change in vision, no chest pain, no palpitations, no diarrhea, constipated for 3 days with no bowel movements, has no dysuria frequency urgency, and no lower extremity edema. Vitals on arrival significant for temp of 98.9?, heart rate of 119, respiratory rate of 18, blood pressure of 152/85, satting 96% on room air Lab significant for WBC count of 13.6, hemoglobin of 14, potassium of 3.1, BUN of 19, creatinine of 0.98, UA that is positive for RBC and blood Patient will be admitted under our service for AFib with RVR as well as SBO with consult for surgery . Small-bowel obstruction. Secondary to postoperative adhesions. She had NG tube in place which was subsequently removed however, she had a large bowel movement yesterday and she has been eating solid foods with no issues. At this time patient is safe for discharge and she agrees to go home with physical therapy. Hematuria/pyuria/urinary retension. Very short time with hematuria. On Eliquis for atrial fibrillation that was restarted June after GI bleed at low-dose. She did have some urinary retention and Boyce catheter was placed and will stay until her follow-up with Urology. She was placed on tamsulosin. Afib rvr. was treated with Cardizem, continue oral Cardizem the. Her Eliquis had been on hold she was restarted in June after GI bleed at 2.5 mg but now she will stop taking her Eliquis until further follow-up with Cardiology due to hematuria. I saw and examined this patient and discussed finding and plan with IOS DEVELOPER, I agree with discharge plan, meds as written. Patient is comfortable with plan for discharge <Sara Holden NP - Last Filed: 11/02/20 15:16> Time Spent with Patient Time attestation: Total time spent providing and/or coordinating discharge services: <Sara Holden NP - Last Filed: 11/02/20 15:16> Discharge coordination time: Greater than 30 minutes <Sara Holden NP - Last Filed: 11/02/20 15:16> Greater than 30 minutes <Will Villaseñor MD - Last Filed: 11/02/20 13:46> Quality: Stroke Does the patient have a stroke diagnosis?: No <Sara Holden NP - Last Filed: 11/02/20 15:16> No <Will Villaseñor MD - Last Filed: 11/02/20 13:46> Physical Exam Vital Signs: Vital Signs: Last Vital Signs Temp 97.6 F 11/02/20 11:35 Pulse 101 H 11/02/20 11:35 Resp 16 11/02/20 11:35 BP 112/58 L 11/02/20 11:35 Pulse Ox 97 11/02/20 11:35 Body Mass Index 31.2 <Sara Holden NP - Last Filed: 11/02/20 15:16> Appearing in no acute distress head is normocephalic atraumatic eyes pupils are PERRLA sclera is anicteric mouth throat mucous membranes are intact and moist neck is supple no lymphadenopathy, no JVD noted lung sounds are clear to auscultation heart regular rate rhythm, clear S1, S2 positive bowel sounds, abdomen is soft, nontender neuro patient is alert x3, no focal deficits boyce in place <Sara Holden NP - Last Filed: 11/02/20 15:16> Discharge Plan Discharge Anticipated Discharge Date/Time: 11/02/20 13:23 <Sara Holden NP - Last Filed: 11/02/20 15:16> Patient Disposition: Home Health Service <Sara Holden NP - Last Filed: 11/02/20 15:16> Discharge Diagnosis: Small-bowel obstruction Atrial fibrillation with rapid ventricular response Hematuria <Sara Holden NP - Last Filed: 11/02/20 15:16> Small-bowel obstruction Atrial fibrillation with rapid ventricular response Hematuria <Will Villaseñor MD - Last Filed: 11/02/20 13:46> Referrals: [facility] [Outside] - 1 Week Sundeep Bryant MD [Physician] - 1 Week (Indwelling boyce catheter) [place] [Primary Care Provider] - 1 Week Charli Jameson MD [Physician] - 1 Week ( Your Eliquis was stopped due to blood in your urine) <Sara Holden NP - Last Filed: 11/02/20 15:16> Discharge Medications: New tamsulosin 0.4 mg Capsule 0.8 mg PO BEDTIME 30 Days Qty: 60 RF: 0 Continued tramadol 50 mg tablet 1 tab PO BEDTIME PRN (Reason: Pain) RF: 0 diltiazem HCl 120 mg capsule,extended release 12 hr 120 mg PO DAILY RF: 0 irbesartan 75 mg tablet 1 tab PO DAILY RF: 0 Discontinued Eliquis 2.5 mg tablet 2.5 mg PO DAILY RF: 0 <Sara Holden NP - Last Filed: 11/02/20 15:16> Discharge Orders: Discharge Order (Routine); Ordered 11/02/20 Ordered By: Sara Holden <Sara Holden NP - Last Filed: 11/02/20 15:16> Diet: advance to usual diet <Sara Holden NP - Last Filed: 11/02/20 15:16> advance to usual diet <Will Villaseñor MD - Last Filed: 11/02/20 13:46> Activity on Discharge: As tolerated <Sara Holden NP - Last Filed: 11/02/20 15:16> As tolerated <Will Villaseñor MD - Last Filed: 11/02/20 13:46> Stand Alone Forms: Patient Portal Discharge page <Sara Holden NP - Last Filed: 11/02/20 15:16> Care Plan Goals: Resolution of small-bowel obstruction symptoms <Sara Holden NP - Last Filed: 11/02/20 15:16> Health Concerns: Small-bowel obstruction Atrial fibrillation with rapid ventricular response Hematuria <Sara Holden NP - Last Filed: 11/02/20 15:16> Plan of Treatment: Your Eliquis was stopped due to blood in your urine. Follow-up with your roll builder to determine when or if he will be start this medication If you develop more blood in your urine return to the emergency department Follow-up with her primary care provider as needed Follow up with urology, Dr. Bryant for boyce catheter removal <Sara Holden NP - Last Filed: 11/02/20 15:16> Assessment: See discharge summary <Sara Holden NP - Last Filed: 11/02/20 15:16>
--- NOTE | 2020-11-02 13:54 | MHC.CM.PN ---
CM MET WITH PTS DAUGHTER TO DISCUSS DC PLAN. SHE REPORTS THE PT BECAME VERY UPSET WHEN STR WAS SUGGESTED AND THOUGHT THAT THEY WERE TRYING TO PUT HER IN A SNF. SHE REPORTS THE PT REALLY WANTS TO GO HOME SO THEY WOULD PREFER IF PT COULD BE DONE THERE. SHE WAS INFORMED A REFERRAL HAD BEEN MADE TO [facility] BY THE PREVIOUS CM SO THEY ALREADY HAD A SPACE SAVED FOR PT TO BE SEEN WEDNESDAY. CM OFFERED TO ARRANGE CHAIR VAN OR BLS TRANSPORT HOWEVER PTS DAUGHTER BELIEVES THEY WILL BE ABLE TO TRANSPORT HER VIA CAR. SHE REPORTS SHE WILL BE THERE TO ASSIST HER FATHER IN GETTING THE PT INTO THE HOME. PT WILL DISCHARGE HOME TODAY WITH [facility] FOR PT. FAMILY WILL TRANSPORT
== END 2020-11-02 15:44 | disposition home health service (06) | DRG 309 ==
LOC: HO.ED 18:11 → HO.IMC 20:35
PROVIDERS: Family Medicine; Nurse Practitioner Family; Admitting Provider Internal Medicine; Emergency Provider Emergency Medicine Emergency Medical Services; Visit Provider Nurse Practitioner Acute Care
DX: I48.91 Unspecified atrial fibrillation (principal); K91.31 Postprocedural partial intestinal obstruction; R33.9 Retention of urine, unspecified; R31.9 Hematuria, unspecified; I10 Essential (primary) hypertension; Z20.822 Contact with and (suspected) exposure to COVID-19; Z87.891 Personal history of nicotine dependence; Z79.891 Long term (current) use of opiate analgesic; Z79.899 Other long term (current) drug therapy
CPT/HCPCS: 36415; 71045; 74018; 74177; 80048; 80076; 81001; 81003; 83690; 83735; 85025; 85027; 85610; 87086; 87635; 93005; 96374; 97163; 99285; C1758; J0696; Q9967

== ENCOUNTER 2020-11-04 13:58 | Emergency (ER) | payer MEDICARE, SELFPAY ==
[2020-11-04] VITALS (7 sets, daily range): BP systolic 128–150; BP diastolic 48–85; PULSE 80–120; RESP 15–18; TEMP 36.7–37.4; O2SAT 96–100; BMI 32.1
--- NOTE | ~2020-11-04 | XR_ITS ---
EXAMINATION: XR CHEST CLINICAL INFORMATION: Acute mental status change COMPARISON: Previous chest x-ray 10/27/2020 TECHNIQUE: Frontal view of the chest was obtained. FINDINGS: The cardiac and mediastinal contours are normal. There is elevation of the right hemidiaphragm similar to previous exam. The lungs are clear. There is no pleural effusion or pneumothorax. There are degenerative changes of the spine. There are surgical clips in the left axilla. XR/XR chest 1V IMPRESSION: No evidence for acute disease in the chest.
--- NOTE | 2020-11-04 14:55 | ECG_ITS ---
Test Reason : EDMD Blood Pressure : / mmHG Vent. Rate : 102 BPM Atrial Rate : 076 BPM P-R Int : 000 ms QRS Dur : 072 ms QT Int : 340 ms P-R-T Axes : 000 -17 001 degrees QTc Int : 443 ms Atrial fibrillation with rapid ventricular response Nonspecific ST abnormality Abnormal ECG When compared with ECG of 02-NOV-2020 13:44, No significant change was found Referred By: Rhona Lindsay Electronically Signed By:ABDIRAHMAN OROZCO MD
--- NOTE | 2020-11-04 15:10 | ED_ITS ---
HPI - General Adult General Chief complaint: General Medical Stated complaint: failure to thrive Time Seen by Provider: 11/04/20 14:55 Source: patient, family and EMS Mode of arrival: EMS Limitations: no limitations History of Present Illness HPI narrative: 84 y/o female with history of dementia, atrial fibrillation recently taken off anticoagulation for hematuria, hx vaginal bleeding and GI bleeding in the past, urinary retention requiring Byrne catheter, recent admission to [facility] [place] [facility] 10/27-11/02 for SBO treated conservatively who presents to the ED from home via EMS with generalized weakness. reports when she was discharged from the hospital she was very weak. He does not know why she did not go to a rehab facility. When she got home and was walking into the house her legs gave out under her and she slid down to the ground. No injuries. It took multiple people to pick her up and get her inside. Over the weekend she continued to be very weak and has been unable to get out of bed. No complaints from the patient. She denies pain. She has been moving her bowels - Wednesday and then again this morning. No fever, chills, N/V or abdominal pain. MD complaint: generalized weakness Onset (ago): day(s) (3) Radiation: non-radiation Severity: severe Relieving factors: rest Exacerbating factors: movement Associated symptoms: confusion (baseline) Treatments prior to arrival: none Related Data Home Medications Medication Instructions Recorded Confirmed diltiazem HCl 120 mg PO DAILY 10/27/20 11/04/20 irbesartan 75 mg PO DAILY 10/27/20 11/04/20 tramadol 1 tab PO BEDTIME PRN 10/27/20 11/04/20 Previous Rx's Medication Instructions Recorded tamsulosin 0.8 mg PO BEDTIME 30 Days #60 cap 11/02/20 Allergies Allergy/AdvReac Type Severity Reaction Status Date / Time perfume Allergy Intermediate SNEEZES Verified 04/06/20 13:59 solifenacin [Vesicare] Allergy Unknown swollen Verified 07/03/19 00:00 lips Review of Systems Review of Systems: Constitutional: No Fever, No Chills ENT/Mouth: No sore throat, No Rhinorrhea, No Swallowing Difficulty Cardiovascular: No Chest Pain, No SOB, No Orthopnea, No Edema Respiratory: No Cough, No Sputum, No Wheezing, No dyspnea Gastrointestinal: No Nausea, No Vomiting, No Diarrhea, No abdominal Pain, No Hematochezia, No Melena Genitourinary: No Dysuria, No Urinary Frequency, No Hematuria Musculoskeletal: No joint pain, No Myalgias Skin: No Skin Lesions, No rash Neuro: + Weakness, No Numbness, No Dizziness, No Headache Psych: No Anxiety/Panic, No Depression Heme/Lymph: No Bruising, No Lymphadenopathy Endocrine: No Polyuria, No Polydipsia PMFSH Past Medical History Medical History Afib HTN (hypertension) Surgical History History of appendectomy History of carpal tunnel surgery History of cholecystectomy Family History Family History Father No problems noted. Mother No problems noted. Social History Social History Household Members: Spouse Housing: House Do you presently have visiting nurse or other home services: No Alcohol intake: never Smoking Status: Former smoker Advance Directives: No Advance Directives Information Provided: Yes service: No Current occupational status: retired Physical Exam Vital Signs: Vital Signs: Last Vital Signs Temp 98.0 F 11/04/20 15:39 Pulse 99 11/04/20 15:39 Resp 16 11/04/20 15:39 BP 150/78 H 11/04/20 15:39 Pulse Ox 99 11/04/20 15:39 Body Mass Index 32.1 Appearance: Alert elderly female sitting up in bed. Oriented X2. No acute distress. Eyes: Pupils equal, round and reactive to light. ENT: Pharynx normal. Neck: Normal inspection. Neck supple. CVS: irregularly irregular, tachycardic. Pulses normal. Respiratory: No respiratory distress. Breath sounds normal. Abdomen: Soft and nontender. +BS x4. Byrne catheter in place draining clear yellow urine. Skin: Skin warm and dry. Normal skin color. Normal skin turgor. No rashes. Extremities: Mild bilateral lower extremity edema, non-pitting. Neuro: Oriented X 2. No motor deficit. No sensory deficit. Generalized weakness noted. Course Course Course Narrative: 84 y/o female presenting with generalized weakness after recent admission for SBO. She is afebrile and tachycardic 110's on arrival with SBP 130's. reports she has not been taking her Cardizem because she does not have any at home. She denies palpations, chest pain or SOB. Home PO Cardizem ordered, 120mg x1. Tachycardia due to medication non-compliance and NOT sepsis. Will get metabolic and infectious workup. Case d/w case management, anticipate d/c to acute rehab. Reevaluation(s) Reevaluation #1: HR improved to 90s with PO cardizem. No leukocytosis. BUN slightly elevated at 20 with normal renal function. UA sent from [place] and is positive for infection, similar to prior UA. Recent culture on 10/29 is negative. Question colonization. Lactic is normal. Given her generalized weakness will treat with dose of IV rocephin for now and plan for 3 days of PO Ceftin. She had recent PT evaluation recommending STR so no repeat evaluation is needed per case management. Will discuss placement to STR with Case Management. Anticipate she will be held in the ER overnight. Physician observation started at 5:45pm. Patient placed in physician observation because patient is awaiting placement to STR. At the time observation was started patient's vital signs were stable. Patient is alert to self and place which is her baseline. Neuro exam is non-focal. CV: irregularly iregular, normal rate and lungs are clear. Will continue to monitor. Medical Decision Making Lab Data Result diagrams: 11/04/20 16:00 Labs: Lab Results 11/04/20 11/04/20 11/04/20 Range/Units 16:00 16:00 16:01 Sodium 137 (135-145) mmol/L Potassium 4.1 (3.3-5.1) mmol/L Chloride 100 (96-108) mmol/L Carbon Dioxide 25 (22-29) mmol/L Anion Gap 16 (12-20) BUN 20 H D (9-16) mg/dL Creatinine 1.01 (0.5-1.4) mg/dL Estim Creat Clear Calc 38.2 Estimated GFR 52 Random Glucose 103 (60-115) mg/dL Calcium 8.8 D (8.4-10.2) mg/dL Magnesium 1.9 (1.6-2.6) mg/dL Total Bilirubin 0.4 (0.0-1.0) mg/dL Direct Bilirubin 0.2 (0.0-0.5) mg/dL AST 22 (5-31) U/L ALT 22 (0-31) U/L Alkaline Phosphatase 70 (39-117) U/L Total Protein 6.2 L (6.5-8.0) g/dL Albumin 3.7 (3.5-5.0) g/dL Urine Color YELLOW Urine Appearance HAZY Urine pH 5.5 (5.0-8.0) Ur Specific [place] >= 1.030 H (1.005-1.025) Urine Protein 2+ H (NEG-TRACE) MG/DL Urine Glucose (UA) NEG (NEG) MG/DL Urine Ketones NEG (NEG) MG/DL Urine Blood 3+ H (NEG) Urine Nitrite NEG (NEG) Ur Leukocyte Esterase 2+ H (NEG) Urine RBC 15-29 H (0) /HPF Urine WBC 15-29 H (0-4) /HPF Ur Squamous Epith Cells 1+ /LPF Ur Renal Epithelial Cell 2+ /LPF Urine Bacteria NONE /LPF Urine Mucus 4+ /LPF COVID-19 ([facility]) Negative (Negative) COVID-19 Clin Com See Note ECG Data Attestation: I personally reviewed and interpreted this ECG as follows: Prior ECG tracings: available for review Interpretation: atrial fibrillation with rapid ventricular response, HR 102 bpm, nonspecific ST abnormality Discharge Plan Discharge Clinical Impression: Generalized weakness Prescriptions: No [facility] tramadol 50 mg tablet 1 tab PO BEDTIME PRN (Reason: Pain) RF: 0 diltiazem HCl 120 mg capsule,extended release 12 hr 120 mg PO DAILY RF: 0 irbesartan 75 mg tablet 75 mg PO DAILY RF: 0 tamsulosin 0.4 mg Capsule 0.8 mg PO BEDTIME 30 Days Qty: 60 RF: 0
[2020-11-04] MEDS: 0.9 % Sodium Chloride 1,000 ML 999 ML IVCONT (15:31)
[2020-11-04] MEDS: dilTIAZem HCL CD 120 MG CAP.ER.DEG PO (15:31)
[2020-11-04 16:19] LABS: Glucose Urine UA NEG (NEG); Leukocyte Esterase Urine 2+ (NEG); Nitrite Urine NEG (NEG); PH 5.5 (5.0-8.0); Specific Gravity - Urine >= 1.030 (1.005-1.025); UACC Culture Trigger YES; Urine Blood 3+ (NEG); Urine Ketones NEG (NEG); Urine Protein 2+ MG/DL (NEG-TRACE)
[2020-11-04 16:26] LABS: COVID-19 Test Negative (Negative)
[2020-11-04 16:30] LABS: Appearance Urine HAZY; Color Urine YELLOW
[2020-11-04 16:36] LABS: Alanine Aminotransferase 22 U/L (0-31); Albumin Level 3.7 g/dL (3.5-5.0); Alkaline Phosphatase 70 U/L (39-117); Anion Gap 16 (12-20); Aspartate Amino Transferase 22 U/L (5-31); Bilirubin Direct 0.2 mg/dL (0.0-0.5); Bilirubin Total 0.4 mg/dL (0.0-1.0); Blood Urea Nitrogen 20 mg/dL (9-16); Calcium 8.8 mg/dL (8.4-10.2); Carbon Dioxide 25 mmol/L (22-29); Chloride 100 mmol/L (96-108); Creatinine Clr Calc Pharmacy 38.2; Estimated Glomerular Filt Rate 52; Glucose Random 103 mg/dL (60-115); Magnesium 1.9 mg/dL (1.6-2.6); Potassium 4.1 mmol/L (3.3-5.1); Sodium 137 mmol/L (135-145); Total Protein 6.2 g/dL (6.5-8.0)
[2020-11-04 17:02] LABS: Squamous Epithelial Cell Urine 1+ /LPF
--- NOTE | 2020-11-04 17:02 | MHC.CM.ED ---
Met with pt and . Pt alert and orientated x 3. Pt and family realize that pt needs to go to STR. Cannot safely ambulate. Pt lives with . Has help from 2 grown children. Uses cane and wheeled walker. Has no services. Is fully vaccinated and had 2 shots, but cannot remember what brand. Pt and have no choices for STR, but would like to remain locally, close to [place], [place]. 13 referrals made, with listing given to to review. Pt and aware that pt will remain in ED tonight. Do not expect bed offer tonight. understands that once bed offers are made, CM will speak with him and he and pt can choose. CM continues to follow for d/c needs.
[2020-11-04 17:03] LABS: Mucus Urine 4+ /LPF; Renal Epithelial Cells Urine 2+ /LPF
--- NOTE | 2020-11-04 17:15 | PC.NURSE ---
THIS PCT WAS UNABLE TO GET ALL BLOOD WORK ,PHLEBOTOMY WAS CALLED THEY WERE UNABLE TO GET THE BLOOD WORK ,RN AWARE .
--- NOTE | 2020-11-04 17:47 | PC.NURSE ---
back from ultrasound
--- NOTE | 2020-11-04 18:14 | PC.NURSE ---
a fib in 110's to 120. this rn to f/u with md for rate control. pt resting quietly in bed. skin pwd. cath draining. no breakdown or reddness on buttocks. ls cta. axox2.
[2020-11-04] MEDS: cefTRIAXone sodium 1 GM in 0.9 % Sodium Chloride 50 ML IV (18:20)
--- NOTE | 2020-11-04 18:41 | PC.NURSE ---
pt has been a very difficult stick. finally labs drawn by this rn from right foot. tolerated well. upright to eat dinner
[2020-11-04 18:47] LABS: MANUAL DIFF FLAG NO
[2020-11-04 18:49] LABS: Basophils Percent Auto 0.5 % (0-2); Eosinophils Absolute Auto 0.3 X10*3/uL (0.0-0.4); Eosinophils Percent Auto 3.6 % (0-4); Hematocrit 35.4 % (37-47); Hemoglobin 11.7 g/dl (12.0-16.0); Imm Gran Abs Auto 0.03 X10*3/uL (0.00-0.03); Imm Gran Pct Auto 0.4 % (0.0-0.4); Lymphocytes Absolute Auto 2.1 X10*3/uL (1.2-4.9); Lymphocytes Percent Auto 25.3 % (20-40); Mean Corpuscular HGB Conc 33.1 g/dl (31.0-35.0); Mean Corpuscular Hemoglobin 30.5 pg (27.0-33.0); Mean Corpuscular Volume 92.2 fL (80-98); Mean Platelet Volume 9.9 fL (9.4-12.3); Monocytes Percent Auto 11.9 % (2-11); Neutrophils Absolute Auto 4.7 X10*3/uL (2.0-8.3); Neutrophils Percent Auto 58.3 % (45-73); Platelet Count 291 X10*3/uL (160-400); Red Blood Count 3.84 X10*6/uL (4.20-5.50); Red Cell Distribution Width 14.8 % (11.0-16.0); White Blood Count 8.1 X10*3/uL (4.8-10.8)
--- NOTE | 2020-11-04 19:00 | MHC.CM.ED ---
[facility] offered a bed and accepted. Pt aware and asked CM to call her . Transportation arranged via [facility] for 11/05 at 10 am. called. Aware of transport time. Will be in about 8am to visit pt and will bring vaccination card. CM will follow for d/c needs.
[2020-11-04 19:12] LABS: Lactic Acid 1.2 mmol/L (0.5-2.0)
[2020-11-04 19:19] LABS: B Type Natriuretic Peptide 85 pg/mL (<100); Troponin-I High Sensitivity 10.7 ng/L (<3.5-17.0)
[2020-11-04] MEDS: Tamsulosin HCL 0.4 MG CAPSULE 0.8 MG PO (20:57)
--- NOTE | 2020-11-04 20:59 | PC.NURSE ---
sleeping comfortably at rn arrival. awaits placement at [facility] in the am.
[2020-11-05 07:51] VITALS: BP 140/79; PULSE 109; RESP 14; O2SAT 96
--- NOTE | 2020-11-05 07:59 | PC.NURSE ---
Pt pleasant, confused, alert to only self. Set up for breakfast and tolerated well. HR 109, afib. PO Cardizem to be given with AM meds as ordered. Pt denies pain/discomfort. Byrne cath emptied for 1800ml of yellow urine. Skin pwd. Breathing even and unlabored. [facility] today per CM notes.
[2020-11-05 08:04] VITALS: BP 140/79; PULSE 109
[2020-11-05] MEDS: Valsartan 40 MG TABLET PO (08:04)
[2020-11-05] MEDS: dilTIAZem HCL CD 120 MG CAP.ER.DEG PO (08:04)
--- NOTE | 2020-11-05 08:50 | MHC.CM.ED ---
Patient remains in ER. Will be d/c'd to [facility] via [facility] at 10am. Continue to monitor for d/c needs.
--- NOTE | 2020-11-05 09:47 | PC.NURSE ---
This RN has given report to Jackie at [facility]
== END 2020-11-05 10:01 | disposition skilled nursing facility (03) ==
PROVIDERS: Physician Assistant; Emergency Provider Emergency Medicine; PCP Internal Medicine
DX: R53.1 Weakness (principal); R33.9 Retention of urine, unspecified; R62.7 Adult failure to thrive; R00.0 Tachycardia, unspecified; R50.9 Fever, unspecified; Z20.822 Contact with and (suspected) exposure to COVID-19; Z79.899 Other long term (current) drug therapy
CPT/HCPCS: 36415; 71045; 80048; 80076; 81001; 81003; 83605; 83735; 83880; 84484; 85025; 87040; 87086; 87635; 93005; 96360; 99285; J0696

== ENCOUNTER 2021-01-27 10:54 | Outpatient (REF) | payer MEDICARE, SELFPAY ==
[2021-01-27 11:04] LABS: MANUAL DIFF FLAG NO
[2021-01-27 11:32] LABS: Basophils Absolute Auto 0.1 X10*3/uL (0.0-0.2); Basophils Percent Auto 0.7 % (0-2); Eosinophils Absolute Auto 0.3 X10*3/uL (0.0-0.4); Eosinophils Percent Auto 3.6 % (0-4); Hemoglobin 12.4 g/dl (12.0-16.0); Imm Gran Abs Auto 0.03 X10*3/uL (0.00-0.03); Imm Gran Pct Auto 0.4 % (0.0-0.4); Lymphocytes Absolute Auto 1.1 X10*3/uL (1.2-4.9); Lymphocytes Percent Auto 15.4 % (20-40); Mean Corpuscular HGB Conc 31.8 g/dl (31.0-35.0); Mean Corpuscular Volume 94.4 fL (80-98); Mean Platelet Volume 11.7 fL (9.4-12.3); Monocytes Absolute Auto 0.6 X10*3/uL (0.1-1.2); Monocytes Percent Auto 8.6 % (2-11); Neutrophils Absolute Auto 4.9 X10*3/uL (2.0-8.3); Neutrophils Percent Auto 71.3 % (45-73); Platelet Count 278 X10*3/uL (160-400); Red Blood Count 4.13 X10*6/uL (4.20-5.50); Red Cell Distribution Width 14.5 % (11.0-16.0); White Blood Count 6.9 X10*3/uL (4.8-10.8)
[2021-01-27 11:59] LABS: Cholesterol 256 mg/dL; HDL Cholesterol 44 mg/dL; LDL Cholesterol Calculated 184 mg/dl; Triglycerides 143 mg/dL
[2021-01-30 12:01] LABS: Alanine Aminotransferase 8 U/L (0-31); Albumin Level 4.1 g/dL (3.5-5.0); Alkaline Phosphatase 70 U/L (39-117); Anion Gap 17 (12-20); Aspartate Amino Transferase 16 U/L (5-31); Bilirubin Total 0.6 mg/dL (0.0-1.0); Blood Urea Nitrogen 9 mg/dL (9-16); Calcium 9.5 mg/dL (8.4-10.2); Carbon Dioxide 23 mmol/L (22-29); Chloride 104 mmol/L (96-108); Estimated Glomerular Filt Rate 45; Glucose Fasting 112 mg/dL (60-99); Potassium 4.8 mmol/L (3.3-5.1); Sodium 139 mmol/L (135-145); Total Protein 6.7 g/dL (6.5-8.0)
== END 2021-01-27 10:55 | disposition home or self-care (01) ==
LOC: HO.LNP 10:54
PROVIDERS: Visit Provider Internal Medicine
DX: I10 Essential (primary) hypertension (principal); E78.00 Pure hypercholesterolemia, unspecified; R41.3 Other amnesia
CPT/HCPCS: 80053; 80061; 85025

== ENCOUNTER 2021-01-30 13:44 | Outpatient (REF) | payer MEDICARE, SELFPAY ==
[2021-01-30 14:19] LABS: Glucose Urine UA NEG (NEG); Leukocyte Esterase Urine 1+ (NEG); Nitrite Urine NEG (NEG); Urine Blood NEG (NEG); Urine Ketones NEG (NEG); Urine Protein NEG (NEG-TRACE)
[2021-01-30 14:26] LABS: Appearance Urine CLEAR; Color Urine YELLOW
[2021-01-30 14:35] LABS: Bacteria Urine 3+ /LPF; RBC Urine 0 /HPF (0); Squamous Epithelial Cell Urine TRACE /LPF
[2021-01-30 15:00] LABS: Thyroid Stimulating Hormone 1.68 uIU/mL (0.32-4.0)
[2021-01-30 15:41] LABS: Folate 4.5 ng/mL (> or = 4.0); Vitamin B12 468 pg/mL (200-900)
== END 2021-01-30 13:45 | disposition home or self-care (01) ==
LOC: HO.LNP 13:44
PROVIDERS: Visit Provider Internal Medicine
DX: G30.0 Alzheimer's disease with early onset (principal); N39.41 Urge incontinence
CPT/HCPCS: 81001; 81003; 82607; 82746; 84443; 87086; 87088; 87186

== ENCOUNTER 2021-06-16 04:51 | Emergency (ER) | payer MEDICARE, SELFPAY ==
--- NOTE | ~2021-06-16 | XR_ITS ---
EXAMINATION: XR KNEE, RIGHT CLINICAL INFORMATION: Question fracture COMPARISON: None TECHNIQUE: Two views of the right knee. FINDINGS: No fracture or subluxation. Moderate to severe medial compartment joint space narrowing. Mild to moderate patellofemoral compartment narrowing. Prominent tricompartmental marginal osteophytes. No joint effusion. The soft tissues appear unremarkable. XR/XR knee RT 2V IMPRESSION: No fracture or malalignment. Tricompartmental degenerative change.
--- NOTE | ~2021-06-16 | CT_ITS ---
EXAMINATION: HEAD CT WITHOUT CONTRAST CERVICAL SPINE CT WITHOUT CONTRAST CLINICAL INFORMATION: Fall COMPARISON: None. TECHNIQUE: Contiguous axial imaging of the head was performed without the administration of IV contrast. Axial multidetector volumetric images were also performed through the cervical spine without intravenous contrast. Multiplanar reconstructed images in coronal and sagittal orientations were submitted. This CT examination was performed using dose optimization techniques as appropriate, variously including the following: *Automated exposure control *Adjustment of mA and/or kV according to patient size (this includes techniques or standardized protocols for targeted exams where dose is matched to indication/reason for exam; i.e. extremities or head) *Use of iterative reconstruction technique DOSE: 873 mGy-cm FINDINGS: HEAD: There is no evidence of acute intracranial hemorrhage or territorial infarction. No abnormal mass-effect or midline shift. No extra-axial fluid collections. Pace to white matter differentiation is well preserved. There is ventriculomegaly which appears out of proportion to the degree of sulcal enlargement. There is prominence of the sylvian fissures as well. Prominent cavum septum pellucidum et vergae. Callosal angle measures 70 degrees. Marked confluent hypoattenuation in the subcortical and periventricular white matter may be due to a combination of primary disease and transependymal CSF flow in periventricular regions. Small lacunar infarcts are suspected in the anterior limbs of the internal capsules bilaterally. The soft tissues and osseous structures are normal. The sinuses and mastoid air cells are clear. CERVICAL SPINE: Vertebral body heights are normal. No fractures of the vertebral bodies or posterior elements. There is grade 1 anterolisthesis of C5 on C6, C6 on C7, and C7 on T1 due to facet arthropathy at each level. Anterolisthesis measures up to 2 mm in diameter at these levels. No acute subluxation. Degenerative changes are present at the craniocervical and atlantoaxial articulations, though normal alignment is maintained. Mild multilevel degenerative disc disease is characterized by mild loss of intervertebral disc heights and multilevel endplate osteophytes. There is more severe multilevel facet arthropathy throughout the cervical spine from C2-C3 through C7-T1. There is ankylosis of the facet joints at C2-C3. No significant central canal stenoses are identified. There is multilevel neural foraminal encroachment produced by uncovertebral and facet osteophytes, most notably on the left from C3-C4 through C5-C6 and on the right at C3-C4 and C6-C7. No significant paravertebral soft tissue swelling. Left thyroid lobe is atrophic. Imaged portions of the lung apices are clear. CT/CT cervical spine wo con IMPRESSION: 1. No acute intracranial pathology. The moderate degree of ventriculomegaly appears out of proportion to the surrounding CSF spaces, raising the possibility of a communicating hydrocephalus (i.e. NPH). Consider further assessment with an MRI CSF flow study if symptoms are appropriate. 2. No acute fracture or acute malalignment in the cervical spine. Marked multilevel degenerative facet arthropathy and more mild degenerative disc disease.
[2021-06-16 04:55] VITALS: BP 130/68; PULSE 110; O2SAT 98
[2021-06-16 05:16] VITALS: BP 132/63; PULSE 107; RESP 20; TEMP 36.6; O2SAT 95; BMI 20.3
--- NOTE | 2021-06-16 09:02 | ED.FALL ---
HPI - Fall General Chief Complaint: Fall Stated Complaint: TRIP AND FALL W/R KNEE PAIN, DIFF AMBULATING Time Seen by Provider: 06/16/21 08:50 Source: patient Mode of arrival: ambulatory Limitations: no limitations History of Present Illness HPI Narrative: 85-year-old female with a history of AFib but not on anticoagulation, hypertension, overactive bladder here with reports of fall the night. Patient tells me that she was having some urinary urgency and was walking quickly to the bathroom when she tripped on a rug falling forward landing on her right knee and hitting her face on the ground. She denies any loss of consciousness. She reports she had a nose bleed initially which resolved. She denies any headache, vision changes, nausea, vomiting, neck pain or back pain. She is complaining of some right knee pain which is worsened with ambulation. Per family the patient has undiagnosed dementia but she seems to be at her baseline Related Data Home Medications Medication Instructions Recorded Confirmed irbesartan 75 mg tablet 75 mg PO DAILY 10/27/20 11/04/20 tramadol 50 mg tablet 1 tab PO BEDTIME PRN 10/27/20 11/04/20 Previous Rx's Medication Instructions Recorded tamsulosin 0.4 mg capsule 0.8 mg PO BEDTIME 30 Days #60 cap 11/02/20 cefuroxime axetil 250 mg tablet 250 mg PO Q12H 7 Days #14 tab 11/05/20 diltiazem HCl 30 mg tablet 30 mg PO BID 30 Days #60 tab 12/02/20 Allergies Allergy/AdvReac Type Severity Reaction Status Date / Time perfume Allergy Intermediate SNEEZES Verified 04/06/20 13:59 solifenacin [Vesicare] Allergy Unknown swollen Verified 07/03/19 00:00 lips Review of Systems Review of Systems: Yes all other systems are reviewed and are negative Constitutional: Constitutional: Reports no additional constitutional complaints, Denies body ache(s), Denies chills, Denies fever(s), Denies headache(s) and Denies weakness Eyes: Eyes: Reports no additional eye complaints and Denies change in vision ENT: Reports system reviewed and no additional complaints, except as documented, Denies dizziness, Denies headache(s), Reports epistaxis, Denies nasal congestion, Denies nasal discharge and Denies neck pain Cardiovascular: Cardiovascular: Reports no additional cardiovascular complaints, Denies chest pain, Denies leg edema and Denies dyspnea Respiratory: Respiratory: Reports no additional respiratory complaints, Denies cough and Denies dyspnea Gastrointestinal: Gastrointestinal: Reports no additional gastrointestinal complaints, Denies abdominal pain, Denies diarrhea, Denies nausea and Denies vomiting Genitourinary: Genitourinary: Reports no additional female genitourinary complaints and Denies urinary incontinence Musculoskeletal: Musculoskeletal: Reports no additional musculoskeletal complaints, Denies back pain, Reports arthralgias, Denies joint swelling, Denies neck pain, Denies numbness and Denies tingling Integumentary/Breasts: Skin/Breast: Reports system reviewed and no additional complaints, except as docu and Denies rash Neurologic: Reports system reviewed and no additional complaints, except as documented, Denies Abnormal speech present, Denies dizziness, Denies headache(s), Denies numbness, Denies tingling and Denies weakness PMFSH Past Medical History Attestation statement: The following information was validated with the patient. Source: old records reviewed and nursing notes reviewed Medical History Afib HTN (hypertension) Surgical History History of appendectomy History of carpal tunnel surgery History of cholecystectomy Family History Family History Father No problems noted. Mother No problems noted. Social History Social History Household Members: Spouse Housing: House Do you presently have visiting nurse or other home services: No Alcohol intake: never Advance Directives: No Advance Directives Information Provided: No service: No Current occupational status: retired Physical Exam Vital Signs: Vital Signs: Last Vital Signs Temp 97.9 F 06/16/21 05:16 Pulse 88 06/16/21 10:27 Resp 16 06/16/21 10:27 BP 119/65 06/16/21 10:27 Pulse Ox 96 06/16/21 10:27 BMI result Body Mass Index 20.3 Const: General: cooperative, healthy appearing, comfortable and no acute distress Orientation/consciousness: oriented to person and oriented to place Limitations: no limitations HENMT: Head: Yes normal to inspection Ears: hearing grossly normal bilaterally and TM's normal bilaterally General nose exam: Normal external nose present and Epistaxis present (Dried blood right nare. No active bleeding) Face and sinus: Yes normal facial exam Mouth: Normal oral and palatal mucosa present Throat: Yes posterior oropharynx normal, Yes tonsils normal and Yes uvula midline Eyes: General: appearance normal, both eyes and all related structures Pupils: Equal, round and reactive pupils present Neck: Neck: Yes normal visual inspection, Yes full ROM, Yes no lymphadenopathy and Yes no meningeal signs Chest: Chest palpation & inspection: normal inspection of the chest Resp: Effort & Inspection: normal respiratory effort Auscultation: clear to auscultation bilaterally Cardio: Rate: regular rate Rhythm: regular rhythm Peripheral pulses: Peripheral pulses 2+ throughout GI: Inspection: Yes normal to inspection Palpation (GI): Soft to palpation and nontender Auscultation: normal bowel sounds Back/Spine/Pelvis: Thoracic/Lumbar Spine: thoracic and lumbar spine normal to inspection Skin: General skin exam: no rashes or lesions noted Neuro: General: oriented to person, oriented to place, no meningeal signs, no focal motor deficits and normal sensation to monofilament Cranial nerves: Yes CN's II-XII intact bilaterally, Yes Equal, round and reactive pupils present, Yes Bilaterally intact EOM present, Yes Nystagmus not present, Yes Normal facial strength present and Yes Midline tongue present Cognition (Neuro): normal cognition Speech: No Abnormal speech present Gait exam (Neuro): Normal gait present Motor exam (neuro): 5/5 motor strength present throughout Sensory Exam: Normal double simultaneous stimulation for sensation Extrem: Other: Tenderness to the right anterior knee. No swelling, ecchymosis, deformity. Full range of motion. General: Yes normal to inspection, Yes no pedal edema and Yes no calf tenderness Course Course Course Narrative: 85-year-old female here after trip and fall striking the face and right knee. Per family the patient is at her mental status baseline. She is slightly confused but otherwise her neuro exam is normal. Will check CT head, CT neck, right knee x-ray 1100-knee x-ray shows no acute finding. Likely contusion. CT of the head shows IMPRESSION: 1. No acute intracranial pathology. The moderate degree of ventriculomegaly appears out of proportion to the surrounding CSF spaces, raising the possibility of a communicating hydrocephalus (i.e. NPH). Consider further assessment with an MRI CSF flow study if symptoms are appropriate. 2. No acute fracture or acute malalignment in the cervical spine. Marked multilevel degenerative facet arthropathy and more mild degenerative disc disease. -I discussed the finding with the daughter at the bedside. She tells me the patient has had intermittent confusion for several months and not acutely. She plans on having her follow-up with her primary care doctor and believes she may have underlying dementia. Denies any gait instability. Denies any urinary continence. No headache, vision changes or vomiting. I did explain to the daughter that if these symptoms should occur she should bring her back to the emergency room immediately. Meanwhile I will refer her to follow-up in Neurology. This case was discussed with my attending Dr. Ortez who agrees with plan of care. Reviewed worrisome signs and symptoms of when to return to the emergency department. Comfortable discharge home. MDM - Fall Medical Records Attestation: I reviewed the patient's medical records. Lab Data Attestation: I reviewed the patient's lab results. Imaging Data CT scan - head: Attestation: I personally reviewed and interpreted this imaging study as follows: Radiologist's impression: IMPRESSION: 1. No acute intracranial pathology. The moderate degree of ventriculomegaly appears out of proportion to the surrounding CSF spaces, raising the possibility of a communicating hydrocephalus (i.e. NPH). Consider further assessment with an MRI CSF flow study if symptoms are appropriate. 2. No acute fracture or acute malalignment in the cervical spine. Marked multilevel degenerative facet arthropathy and more mild degenerative disc disease. knee xray: Attestation: I personally reviewed and interpreted this imaging study as follows: Radiologist's impression: [address] [address] XRay Report Signed Patient: Briana Barbosa MR#: [id number] : 1935 Acct:[id number] Age/Sex: 85 / F ADM Date: 06/16/21 Loc: HO.ED Attending Dr: Ordering Physician: Generic ED Physician Date of Service: 06/16/21 Procedure(s): XR knee RT 2V Accession Number(s): [id number] cc: Generic ED Physician~ EXAMINATION: XR KNEE, RIGHT? CLINICAL INFORMATION: Question fracture? COMPARISON: None? TECHNIQUE: Two views of the right knee. FINDINGS: No fracture or subluxation. Moderate to severe medial compartment joint space narrowing. Mild to moderate patellofemoral compartment narrowing. Prominent tricompartmental marginal osteophytes. No joint effusion. The soft tissues appear unremarkable.? XR/XR knee RT 2V IMPRESSION: No fracture or malalignment. Tricompartmental degenerative change. ? Discharge Plan Discharge Clinical Impression: Contusion of knee, right, Bleeding nose, Abnormal CT scan of head Patient Disposition: Home, Self-Care Instructions: Nosebleed (ED), Contusion in Adults (ED) Additional Instructions: Ice to the area Gentle stretching Follow-up with primary care doctor Her CT scan shows some fluid in the brain. Please follow-up outpatient with Neurology. If she develops headache, vomiting, worsening confusion, difficulty ambulating please return Prescriptions: No [facility] diltiazem HCl 30 mg tablet 30 mg PO BID 30 Days Qty: 60 RF: 2 tramadol 50 mg tablet 1 tab PO BEDTIME PRN (Reason: Pain) RF: 0 irbesartan 75 mg tablet 75 mg PO DAILY RF: 0 tamsulosin 0.4 mg Capsule 0.8 mg PO BEDTIME 30 Days Qty: 60 RF: 0 cefuroxime axetil 250 mg tablet 250 mg PO Q12H 7 Days Qty: 14 RF: 0 Referrals: Gilberto Puga MD [Physician] - 2 days
[2021-06-16 10:27] VITALS: BP 119/65; PULSE 88; RESP 16; O2SAT 96
== END 2021-06-16 11:17 | disposition home or self-care (01) ==
PROVIDERS: Emergency Provider Emergency Medicine; PCP Internal Medicine
DX: S80.01XA Contusion of right knee, initial encounter (principal); R04.0 Epistaxis; R93.0 Abnormal findings on diagnostic imaging of skull and head, not elsewhere classified; I10 Essential (primary) hypertension; I48.91 Unspecified atrial fibrillation; W01.0XXA Fall on same level from slipping, tripping and stumbling without subsequent striking against object, initial encounter; Y93.9 Activity, unspecified; Y92.009 Unspecified place in unspecified non-institutional (private) residence as the place of occurrence of the external cause; Y99.9 Unspecified external cause status
CPT/HCPCS: 70450; 72125; 73560; 99284

== ENCOUNTER 2022-01-26 10:37 | Outpatient (REF) | payer MEDICARE, SELFPAY ==
[2022-01-26 10:41] LABS: MANUAL DIFF FLAG NO
[2022-01-26 10:56] LABS: Basophils Absolute Auto 0.1 X10*3/uL (0.0-0.2); Basophils Percent Auto 0.9 % (0-2); Eosinophils Absolute Auto 0.2 X10*3/uL (0.0-0.4); Eosinophils Percent Auto 3.2 % (0-4); Hematocrit 37.5 % (37.0-47.0); Hemoglobin 12.3 g/dl (12.0-16.0); Imm Gran Abs Auto 0.02 X10*3/uL (0.00-0.03); Imm Gran Pct Auto 0.3 % (0.0-0.4); Lymphocytes Absolute Auto 1.8 X10*3/uL (1.2-4.9); Lymphocytes Percent Auto 25.8 % (20-40); Mean Corpuscular HGB Conc 32.8 g/dl (31.0-35.0); Mean Corpuscular Hemoglobin 30.4 pg (27.0-33.0); Mean Corpuscular Volume 92.6 fL (80.0-98.0); Mean Platelet Volume 11.2 fL (9.4-12.3); Monocytes Absolute Auto 0.5 X10*3/uL (0.1-1.2); Monocytes Percent Auto 7.7 % (2-11); Neutrophils Absolute Auto 4.3 x10*3/uL (2.0-8.3); Neutrophils Percent Auto 62.1 % (45-73); Platelet Count 227 X10*3/uL (160-400); Red Blood Count 4.05 X10*6/uL (4.20-5.50); Red Cell Distribution Width 14.9 % (11.0-16.0); White Blood Count 6.9 X10*3/uL (4.8-10.8)
[2022-01-26 11:15] LABS: Alanine Aminotransferase 8 U/L (0-31); Albumin Level 4.1 g/dL (3.5-5.0); Alkaline Phosphatase 71 U/L (39-117); Anion Gap 16 (12-20); Aspartate Amino Transferase 15 U/L (5-31); Bilirubin Total 0.7 mg/dL (0.0-1.0); Blood Urea Nitrogen 23 mg/dL (9-16); Calcium 9.1 mg/dL (8.4-10.2); Carbon Dioxide 26 mmol/L (22-29); Chloride 103 mmol/L (96-108); Cholesterol 257 mg/dL; Estimated Glomerular Filt Rate 40; Glucose Fasting 102 mg/dL (60-99); HDL Cholesterol 52 mg/dL; LDL Cholesterol Calculated 188 mg/dl; Potassium 4.1 mmol/L (3.3-5.1); Sodium 141 mmol/L (135-145); Total Protein 6.8 g/dL (6.5-8.0); Triglycerides 86 mg/dL
== END 2022-01-26 10:38 | disposition home or self-care (01) ==
LOC: HO.LNP 10:37
PROVIDERS: Visit Provider Internal Medicine
DX: I10 Essential (primary) hypertension (principal); E78.00 Pure hypercholesterolemia, unspecified
CPT/HCPCS: 80053; 80061; 85025

== ENCOUNTER 2023-02-04 12:08 | Outpatient (REF) | payer MEDICARE, SELFPAY ==
[2023-02-04 12:11] LABS: MANUAL DIFF FLAG NO
[2023-02-04 12:19] LABS: Basophils Absolute Auto 0.1 X10*3/uL (0.0-0.2); Basophils Percent Auto 0.8 % (0-2); Eosinophils Absolute Auto 0.1 X10*3/uL (0.0-0.4); Eosinophils Percent Auto 2.1 % (0-4); Hematocrit 39.3 % (37.0-47.0); Hemoglobin 12.9 g/dl (12.0-16.0); Imm Gran Abs Auto 0.01 X10*3/uL (0.00-0.03); Imm Gran Pct Auto 0.2 % (0.0-0.4); Lymphocytes Percent Auto 32.6 % (20-40); Mean Corpuscular HGB Conc 32.8 g/dl (31.0-35.0); Mean Corpuscular Hemoglobin 30.7 pg (27.0-33.0); Mean Corpuscular Volume 93.6 fL (80.0-98.0); Mean Platelet Volume 11.3 fL (9.4-12.3); Monocytes Absolute Auto 0.5 X10*3/uL (0.1-1.2); Monocytes Percent Auto 8.9 % (2-11); Neutrophils Absolute Auto 3.4 x10*3/uL (2.0-8.3); Neutrophils Percent Auto 55.4 % (45-73); Platelet Count 224 X10*3/uL (160-400); Red Cell Distribution Width 14.4 % (11.0-16.0); White Blood Count 6.1 X10*3/uL (4.8-10.8)
[2023-02-04 12:36] LABS: Alanine Aminotransferase 14 U/L (0-31); Alkaline Phosphatase 63 U/L (39-117); Anion Gap 16 (12-20); Aspartate Amino Transferase 22 U/L (5-31); Bilirubin Total 0.6 mg/dL (0.0-1.0); Blood Urea Nitrogen 24 mg/dL (9-16); Calcium 9.3 mg/dL (8.4-10.2); Carbon Dioxide 25 mmol/L (22-29); Chloride 106 mmol/L (96-108); Cholesterol 276 mg/dL; Estimated Glomerular Filt Rate 40; Glucose Fasting 94 mg/dL (60-99); HDL Cholesterol 71 mg/dL; LDL Cholesterol Calculated 190 mg/dl; Potassium 3.9 mmol/L (3.3-5.1); Sodium 143 mmol/L (135-145); Triglycerides 75 mg/dL
== END 2023-02-04 12:09 | disposition home or self-care (01) ==
LOC: HO.LNP 12:08
PROVIDERS: Visit Provider Internal Medicine
DX: I10 Essential (primary) hypertension (principal); E78.00 Pure hypercholesterolemia, unspecified
CPT/HCPCS: 80053; 80061; 85025

== ENCOUNTER 2023-02-11 15:57 | Outpatient (REF) | payer MEDICARE, SELFPAY ==
[2023-02-11 16:20] LABS: Appearance Urine Cloudy; Color Urine Yellow; Glucose Urine UA Negative (Negative); Leukocyte Esterase Urine Large (3+) (Negative); Nitrite Urine Negative (Negative); Specific Gravity - Urine 1.015 (1.005-1.025); UMIC TRIGGER UACC YES; Urine Blood Negative (Negative); Urine Ketones Negative (Negative); Urine Protein Trace mg/dL (Neg-Trace)
[2023-02-11 17:01] LABS: RBC Urine 0-2 /HPF (0-2); UACC Culture Trigger YES; WBC Urine 0-5 /HPF (0-5)
[2023-02-11 17:02] LABS: Bacteria Urine 2+ (None Seen); Hyaline Casts Urine 0-2 /LPF (0-2); Squamous Epithelial Cell Urine 0-2 /HPF (0-2)
== END 2023-02-11 15:58 | disposition home or self-care (01) ==
LOC: HO.LNP 15:57
PROVIDERS: Visit Provider Internal Medicine
DX: N39.3 Stress incontinence (female) (male) (principal); I10 Essential (primary) hypertension
CPT/HCPCS: 81001; 87086

== ENCOUNTER 2024-02-07 10:47 | Outpatient (REF) | payer MEDICARE, SELFPAY ==
[2024-02-07 10:49] LABS: MANUAL DIFF FLAG NO
[2024-02-07 11:06] LABS: Basophils Absolute Auto 0.1 X10*3/uL (0.0-0.2); Eosinophils Absolute Auto 0.1 X10*3/uL (0.0-0.4); Eosinophils Percent Auto 2.2 % (0-4); Hematocrit 40.1 % (37.0-47.0); Hemoglobin 13.1 g/dl (12.0-16.0); Imm Gran Abs Auto 0.02 X10*3/uL (0.00-0.03); Imm Gran Pct Auto 0.3 % (0.0-0.4); Lymphocytes Absolute Auto 1.9 X10*3/uL (1.2-4.9); Lymphocytes Percent Auto 31.2 % (20-40); Mean Corpuscular HGB Conc 32.7 g/dl (31.0-35.0); Mean Corpuscular Hemoglobin 31.3 pg (27.0-33.0); Mean Corpuscular Volume 95.9 fL (80.0-98.0); Mean Platelet Volume 11.2 fL (9.4-12.3); Monocytes Absolute Auto 0.5 X10*3/uL (0.1-1.2); Monocytes Percent Auto 8.9 % (2-11); Neutrophils Absolute Auto 3.4 x10*3/uL (2.0-8.3); Neutrophils Percent Auto 56.4 % (45-73); Platelet Count 229 X10*3/uL (160-400); Red Blood Count 4.18 X10*6/uL (4.20-5.50)
[2024-02-07 11:30] LABS: Alanine Aminotransferase 12 U/L (0-31); Alkaline Phosphatase 65 U/L (39-117); Anion Gap 13 (12-20); Aspartate Amino Transferase 20 U/L (5-31); Bilirubin Total 0.6 mg/dL (0.0-1.0); Blood Urea Nitrogen 23 mg/dL (9-16); Calcium 9.5 mg/dL (8.4-10.2); Carbon Dioxide 28 mmol/L (22-29); Chloride 106 mmol/L (96-108); Cholesterol 274 mg/dL (<200); Estimated Glomerular Filt Rate 40; Glucose Fasting 108 mg/dL (60-99); HDL Cholesterol 66 mg/dL (>40); LDL Cholesterol Calculated 188 mg/dL (<100); Potassium 4.1 mmol/L (3.3-5.1); Sodium 143 mmol/L (135-145); Total Protein 6.9 g/dL (6.5-8.0); Triglycerides 102 mg/dL (<150)
== END 2024-02-07 10:48 | disposition home or self-care (01) ==
LOC: HO.LNP 10:47
PROVIDERS: Visit Provider Internal Medicine
DX: I10 Essential (primary) hypertension (principal); E78.00 Pure hypercholesterolemia, unspecified
CPT/HCPCS: 80053; 80061; 85025